=== PATIENT | female | born 1990 | race Caucasian/White ===

== ENCOUNTER 2019-01-27 17:01 | Emergency (ER) | payer OTHER ==
[2019-01-27 17:37] VITALS: BP 109/64; PULSE 68; TEMP 97.3; BMI 32.5
--- NOTE | 2019-01-27 18:03 | PDOC ---
History of Present Illness - General Chief Complaint: Pain, Acute Stated Complaint: LEFT/LEG PAIN Time Seen by Provider: 01/27/19 17:44 History Source: Patient Exam Limitations: No Limitations - History of Present Illness Initial Comments: 01/27/19 18:06 Patient is here with complaints of low back pain, worse on the left than the right with radiation pain through gluteus down the back of her leg. States had a fall down some stairs in October and since that time has had intermittent back pain and mild spasm. Has taken no medication for relief of same. States onset of this pain started approximately 3 days ago has been performing some heavy lifting at work the past few days. Thinks may be related to the recurrence of the spasm. Eyes numbness or tingling to feet, denies any problems with bowel or bladder. Occurred: reports: yesterday Severity: reports: mild, moderate Pain Location: reports: back Modifying Factors: improves with: None Loss of Consciousness: no loss of consciousness Associated Symptoms (Fall): denies symptoms Past History - Travel Traveled outside of the country in the last 30 days: No Close contact w/someone who was outside of country & ill: No - Past Medical History Allergies/Adverse Reactions: Allergies Allergy/AdvReac Type Severity Reaction Status Date / Time No Known Allergies Allergy Verified 01/27/19 17:34 Home Medications: Ambulatory Orders Cyclobenzaprine HCl 10 mg PO Q8H PRN #14 tablet 01/27/19 Naproxen [Naprosyn -] 500 mg PO BID #30 tablet 01/27/19 COPD: No - Immunization History Immunization Up to Date: No - Suicide/Smoking/Psychosocial Hx Smoking History: Never smoked Drug/Substance Use Hx: No Trauma Specific PMHX - Complaint Specific PMHX Back Injury: Yes (October, fell downstairs, was never evaluated.) Review of Systems - Review of Systems Able to Perform ROS?: Yes Is the patient limited Arabic proficient: Yes Constitutional: Yes: Symptoms Reported, See HPI, Malaise. No: Fever HEENTM: No: Symptoms Reported Respiratory: No: Symptoms reported Musculoskeletal: Yes: Symptoms Reported, See HPI, Back Pain, Muscle Pain Integumentary: No: Symptoms Reported Neurological: Yes: See HPI. No: Symptoms reported, Headache, Numbness, Paresthesia All Other Systems: Reviewed and Negative *Physical Exam - Vital Signs Last Vital Signs Temp Pulse Resp BP Pulse Ox 97.3 F L 68 16 109/64 100 01/27/19 17:35 01/27/19 17:35 01/27/19 17:35 01/27/19 17:35 01/27/19 17:35 - Physical Exam General Appearance: Yes: Nourished, Appropriately Dressed, Apparent Distress, Mild Distress, Moderate Distress HEENT: positive: OCTAVIO, Normal ENT Inspection, TMs Normal, Pharynx Normal Neck: positive: Supple. negative: Tender Respiratory/Chest: positive: Lungs Clear Musculoskeletal: positive: Normal Inspection, Decreased Range of Motion, Muscle Spasm (palpable paravertebral spinous muscles, has no true point tenderness to spine, is primarily the paravertebral lumbar area on the left side.). negative : CVA Tenderness (L), Vertebral Tenderness Extremity: positive: Normal Capillary Refill, Normal Inspection. 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, Fully Oriented, Alert, Normal Mood/ Affect, Normal Response, Motor Strength 5/5 Progress Note - Progress Note Progress Note: Low back strain, will treat with NSAIDs and cyclobenzaprine *DC/Admit/Observation/Transfer Diagnosis at time of Disposition: Low back strain Qualifiers: Encounter type: initial encounter Qualified Code(s): S39.012A - Strain of muscle, fascia and tendon of lower back, initial encounter - Discharge Dispostion Disposition: HOME Condition at time of disposition: Stable Decision to Admit order: No - Referrals - Patient Instructions Printed Discharge Instructions: DI for Back Spasm Additional Instructions: Rest, no heavy lifting or exercise until pain is resolved Hot soaks to neck and low back as often as possible/hot showers or Jacuzzis No massage or therapy until spasm is gone Continue Naprosyn 500 mg tablet, 1 tablet every 8 hours for the next 3 days then as needed for pain and swelling Cyclobenzaprine 1-10mg every 8 hours as needed for spasm If not significant improvement within 24 hours with medication and rest regime, followup with private physician for change in medications and /or therapy. - Post Discharge Activity Forms/Work/School Notes: Back to Work
== END 2019-01-27 18:14 | disposition home or self-care (01) ==
LOC: JERFT 17:01
DX: S39.012A Strain of muscle, fascia and tendon of lower back, initial encounter (principal); X58.XXXA Exposure to other specified factors, initial encounter; Y93.89 Activity, other specified; Y92.89 Other specified places as the place of occurrence of the external cause
CPT/HCPCS: 99281-25

== ENCOUNTER 2019-01-28 19:31 | Emergency (ER) | payer OTHER ==
--- NOTE | 2019-01-28 20:09 | PDOC ---
Rapid Medical Evaluation Chief Complaint: Back Pain Medical Evaluation: Allergies Allergy/AdvReac Type Severity Reaction Status Date / Time No Known Allergies Allergy Verified 01/27/19 17:34 01/28/19 20:03 I have performed a brief in-person evaluation of this patient. The patient presents with a chief complaint of: persistant back pain - taking flexeril and naprosyn Pertinent physical exam findings: tender/ low left lumbar spine. I have ordered the following: LS SPine The patient will proceed to the ED for further evaluation. 01/28/19 20:09
[2019-01-28 20:17] VITALS: BP 115/76; PULSE 70; TEMP 98.3; BMI 38.6
--- NOTE | 2019-01-28 20:38 | PDOC ---
History of Present Illness - General Chief Complaint: Back Pain Stated Complaint: BACK PAIN Time Seen by Provider: 01/28/19 20:29 History Source: Patient Exam Limitations: No Limitations Past History - Travel Traveled outside of the country in the last 30 days: No Close contact w/someone who was outside of country & ill: No - Past Medical History Allergies/Adverse Reactions: Allergies Allergy/AdvReac Type Severity Reaction Status Date / Time No Known Allergies Allergy Verified 01/28/19 20:16 Home Medications: Ambulatory Orders Cyclobenzaprine HCl 10 mg PO Q8H PRN #14 tablet 01/27/19 Naproxen [Naprosyn -] 500 mg PO BID #30 tablet 01/27/19 Diazepam [Valium] 5 mg PO HS #7 tablet MDD 1 01/28/19 Methylprednisolone [Medrol Dose Delgado] 4 mg PO ASDIR #21 tablet 01/28/19 COPD: No - Immunization History Immunization Up to Date: No - Suicide/Smoking/Psychosocial Hx Smoking History: Never smoked Have you smoked in the past 12 months: No Information on smoking cessation initiated: No Hx Alcohol Use: No Drug/Substance Use Hx: No Review of Systems - Review of Systems Able to Perform ROS?: Yes Comments:: 01/28/19 20:59 CONSTITUTIONAL: Absent: fever, chills, diaphoresis, generalized weakness, malaise, loss of appetite GASTROINTESTINAL: Absent: abdominal pain, abdominal distension, nausea, vomiting, diarrhea, constipation, melena, hematochezia GENITOURINARY: Absent: dysuria, frequency, urgency, hesitancy, hematuria, flank pain, genital pain MUSCULOSKELETAL: Present: low back pain Absent: arthralgia, joint swelling SKIN: Absent: rash, itching, pallor NEUROLOGIC: Absent: headache, focal weakness or paresthesias, dizziness, unsteady gait, seizure, mental status changes, bladder or bowel incontinence PSYCHIATRIC: Absent: anxiety, depression, suicidal or homicidal ideation, hallucinations. Is the patient limited Chilean proficient: No *Physical Exam - Vital Signs Last Vital Signs Temp Pulse Resp BP Pulse Ox 98.3 F 70 18 115/76 100 01/28/19 20:12 01/28/19 20:12 01/28/19 20:12 01/28/19 20:12 01/28/19 20:12 - Physical Exam Comments: 01/28/19 21:00 GENERAL: Well developed, well nourished. Awake and alert. No acute distress. NECK: Supple. Full ROM. No JVD. Carotid pulses 2+ and symmetric, without bruits. No thyromegaly. No lymphadenopathy. MUSCULOSKELETAL TTP of the R paraspinous muscles, L3-S1, with palpable knot consistent with muscle spasm. (+) straight leg raise on the right. No midline tenderness. Gait with visible limp favoring the L side. Decreased ROM of the low back d/t pain. Normal range of motion at all other joints. No bony deformities or tenderness. No CVA tenderness. EXTREMITIES: No cyanosis. No clubbing. No edema. No calf tenderness. SKIN: Warm and dry. Normal capillary refill. No rashes. No jaundice. NEUROLOGICAL: Alert, awake, appropriate. Cranial nerves 2-12 intact. No deficits to light touch and temperature in face, upper extremities and lower extremities. No motor deficits in the in face, upper extremities and lower extremities. Normoreflexic in the upper and lower extremities. Normal speech. Toes are down- going bilaterally. Gait is normal without ataxia. PSYCHIATRIC: Cooperative. Good eye contact. Appropriate mood and affect. Medical Decision Making - Medical Decision Making 01/28/19 21:00 The patient is a 28-year-old female with no past medical history who presents to the emergency department today for low back pain. Patient states she was here yesterday for similar symptoms. She states that the naproxen and Flexeril did not help her pain. She states the spasms started approximately 4 days ago. Patient does admit she lifts heavy objects at work. She states that the pain runs down her right leg. Denies fevers, chills, trauma, weakness to the extremities, numbness to the extremities, saddle anesthesia and bladder bowel incontinence. A/P: Low back pain -Pt with TTP of the R paraspinous muscles, L3-S1, with palpable knot consistent with muscle spasm. (+) straight leg raise on the right. No midline tenderness. Gait with visible limp favoring the L side. -No trauma, or fever. No saddle anesthesia or bladder/bowel incontinence. No CVA tenderness. -Pt is neurologically intact on exam with no focal findings. -Wet read of lumbar spine x-ray shows no acute fracture. Good spinal alignment with good disc height. -Toradol given with relief of symptoms -DC home. Pt to f/u with her PCP. Ortho referral given. -I discussed the physical exam findings, ancillary test results and final diagnoses with the patient. I answered all of the patient's questions. The patient was satisfied with the care received and felt comfortable with the discharge plan and treatment plan. The Patient agrees to follow up with the primary care physician/specialist within 24-72 hours. Return precautions were given. *DC/Admit/Observation/Transfer Diagnosis at time of Disposition: Low back pain Qualifiers: Chronicity: acute Back pain laterality: left Sciatica presence: with sciatica Sciatica laterality: sciatica of left side Qualified Code(s): M54.42 - Lumbago with sciatica, left side - Discharge Dispostion Disposition: HOME Condition at time of disposition: Stable Decision to Admit order: No - Prescriptions Prescriptions: Diazepam [Valium] 5 mg PO HS #7 tablet MDD 1 Methylprednisolone [Medrol Dose Delgado] 4 mg PO ASDIR #21 tablet - Referrals Referrals: Steve Mckeon MD [Primary Care Provider] - Peña Tinoco MD, FAANS [Staff Physician] - - Patient Instructions Printed Discharge Instructions: DI for Back Pain With Sciatica Additional Instructions: You have low back pain due to a muscle spasm. This is causing sciatica (pain down the leg) Please take the prednisone as prescribed. You were also prescribed Valium. Please take the medication before you go to bed. Do not drive after taking this medication as it may make you sleepy. You may use warm compresses on your back to help with her symptoms. Please follow-up with your primary care doctor. If your symptoms do not resolve in 3-5 days, follow-up with orthopedics. A referral has been provided for you. Return to the emergency department if you have worsening back pain, bladder or bowel incontinence, numbness and tingling in her legs, changes in the way you walk, or any new or worsening symptoms. - Post Discharge Activity Forms/Work/School Notes: Back to Work
[2019-01-28] MEDS ORDERED: LIDOCAINE 5% TOPICAL PATCH TP ONE (20:39)
[2019-01-28] MEDS ORDERED: diazePAM 5 MG TABLET PO ONE (20:39)
[2019-01-28] MEDS ORDERED: KETOROLAC TROMETHAMINE 60 MG/2 ML VIAL IM ONE (20:39)
[2019-01-28] MEDS ORDERED: KETOROLAC TROMETHAMINE 60 MG/2 ML VIAL ONE (21:14)
[2019-01-28] MEDS ORDERED: diazePAM 5 MG TABLET ONE (21:14)
[2019-01-28] MEDS ORDERED: LIDOCAINE 5% TOPICAL PATCH ONE (21:14)
[2019-01-28] MEDS ORDERED: LIDOCAINE PATCH REMOVAL MC SCH (22:00)
== END 2019-01-28 22:02 | disposition home or self-care (01) ==
LOC: JERFT 19:31
PROC: 3E0233Z Introduction of Anti-inflammatory into Muscle, Percutaneous Approach (ICD-10-PCS; principal; 2019-01-28)
DX: M54.42 Lumbago with sciatica, left side (principal)
CPT/HCPCS: 72100-TC-FY; 99281-25

== ENCOUNTER 2019-02-03 04:41 | Inpatient (IN) | payer OTHER ==
--- NOTE | 2019-02-03 05:45 | PDOC ---
History of Present Illness - History of Present Illness Initial Comments: 02/03/19 05:45 Ms. Grimes is a 28 yo female w/ pmh of obesity and recent MRI revealing L5-S1 herniated disc who presents for evaluation of exacerbation of her left lower back pain. Patient reports pain became worse last night and persisted after she took a valium she had at home. Denies any other symptoms besides pain but is finding it difficult to tolerate pain at this time. The patient denies chest pain, shortness of breath, headache and dizziness. Denies fever, chills, nausea, vomit, diarrhea and constipation. Denies dysuria, frequency, urgency and hematuria. <Kristian Valencia - Last Filed: 02/03/19 07:25> <Luis Claudio - Last Filed: 02/03/19 08:16> - General Chief Complaint: Back Pain Stated Complaint: LBP Time Seen by Provider: 02/03/19 05:41 Past History - Past Medical History COPD: No - Immunization History Immunization Up to Date: No - Suicide/Smoking/Psychosocial Hx Smoking History: Never smoked Have you smoked in the past 12 months: No Information on smoking cessation initiated: No Hx Alcohol Use: No Drug/Substance Use Hx: No <Kristian Valencia - Last Filed: 02/03/19 07:25> <Luis Claudio - Last Filed: 02/03/19 08:16> - Past Medical History Allergies/Adverse Reactions: Allergies Allergy/AdvReac Type Severity Reaction Status Date / Time No Known Allergies Allergy Verified 02/03/19 05:31 Home Medications: Ambulatory Orders Naproxen [Naprosyn -] 500 mg PO BID #30 tablet 01/27/19 Review of Systems - Review of Systems Comments:: 02/03/19 05:45 GENERAL/CONSTITUTIONAL: No fever or chills. No weakness. HEAD, EYES, EARS, NOSE AND THROAT: No change in vision. No ear pain or discharge. No sore throat. CARDIOVASCULAR: No chest pain or shortness of breath RESPIRATORY: No cough, wheezing, or hemoptysis. GASTROINTESTINAL: No nausea, vomiting, diarrhea or constipation. GENITOURINARY: No dysuria, frequency, or change in urination. MUSCULOSKELETAL: +Left lower back pain as described. No joint or muscle swelling or pain. No neck pain. SKIN: No rash NEUROLOGIC: No headache, vertigo, loss of consciousness, or change in strength/ sensation. ENDOCRINE: No increased thirst. No abnormal weight change HEMATOLOGIC/LYMPHATIC: No anemia, easy bleeding, or history of blood clots. ALLERGIC/IMMUNOLOGIC: No hives or skin allergy. <Kristian Valencia - Last Filed: 02/03/19 07:25> *Physical Exam - Vital Signs Last Vital Signs Temp Pulse Resp BP Pulse Ox 98.1 F 102 H 19 141/72 98 02/03/19 04:41 02/03/19 04:41 02/03/19 04:41 02/03/19 04:41 02/03/19 04:41 - Physical Exam Comments: 02/03/19 05:45 GENERAL: Awake, alert, and fully oriented, in no acute distress HEAD: No signs of trauma, normocephalic, atraumatic EYES: PERRLA, EOMI, sclera anicteric, conjunctiva clear ENT: Auricles normal inspection, hearing grossly normal, nares patent, oropharynx clear without exudates. Moist mucosa NECK: Normal ROM, supple, no lymphadenopathy, JVD, or masses LUNGS: No distress, speaks full sentences, clear to auscultation bilaterally HEART: Regular rate and rhythm, normal S1 and S2, no murmurs, rubs or gallops, peripheral pulses normal and equal bilaterally. ABDOMEN: Soft, nontender, normoactive bowel sounds. No guarding, no rebound. No masses EXTREMITIES: +L Lower back TTP. Minor L straight leg raise produced excessive pain. NEUROLOGICAL: Cranial nerves II through XII grossly intact. Normal speech, normal gait, no focal sensorimotor deficits SKIN: Warm, Dry, normal turgor, no rashes or lesions noted. <Kristian Valencia - Last Filed: 02/03/19 07:25> - Vital Signs Last Vital Signs Temp Pulse Resp BP Pulse Ox 98.1 F 86 19 141/72 98 02/03/19 04:41 02/03/19 06:45 02/03/19 04:41 02/03/19 04:41 02/03/19 04:41 <Luis Claudio - Last Filed: 02/03/19 08:16> ED Treatment Course - LABORATORY CBC & Chemistry Diagram: 02/03/19 06:14 02/03/19 06:14 <Kristian Valencia - Last Filed: 02/03/19 07:25> - LABORATORY CBC & Chemistry Diagram: 02/03/19 06:14 02/03/19 06:14 - ADDITIONAL ORDERS Additional order review: Laboratory Results 02/03/19 02/03/19 06:14 06:14 PT with INR 10.60 INR 0.90 PTT (Actin FS) 32.2 Sodium 139 Potassium 3.9 Chloride 106 Carbon Dioxide 23 Anion Gap 10 BUN 16 Creatinine 0.6 Creat Clearance w eGFR 118.19 Random Glucose 99 Calcium 7.8 L Total Bilirubin 0.2 AST 19 ALT 19 Alkaline Phosphatase 102 Total Protein 7.0 Albumin 3.8 02/03/19 06:14 RBC 4.57 MCV 80.1 MCHC 33.4 RDW 14.0 MPV 7.5 Neutrophils % 61.4 Lymphocytes % 30.7 Monocytes % 5.1 Eosinophils % 2.1 Basophils % 0.7 - Medications Given in the ED: ED Medications Discontinued Medications Generic Name Dose Route Start Last Admin Trade Name Freq PRN Reason Stop Dose Admin Sodium Chloride 1,000 mls @ 1,000 mls/hr 02/03/19 05:54 02/03/19 06:15 Normal Saline - IV 02/03/19 06:53 1,000 mls/hr ASDIR STA Administration Morphine Sulfate 4 mg 02/03/19 05:54 02/03/19 06:15 Morphine Injection - IVPUSH 02/03/19 05:55 4 mg ONCE ONE Administration <Luis Claudio - Last Filed: 02/03/19 08:16> Medical Decision Making - Medical Decision Making 02/03/19 06:00 Ms. Grimes is a 28 yo female w/ pmh as described who presents for evaluation of symptoms concerning for cauda equina. Patient discussed with Neurosurgery who recommended admission and will take to OR today. Pre-op started on patient. Will admit patient to hospitalist for further evaluation. <Kristian Valencia - Last Filed: 02/03/19 07:25> - Medical Decision Making 02/03/19 08:16 pt awaitng surgery c/o pain 08/05. will adminsiter iv morphine. <Luis Claudio - Last Filed: 02/03/19 08:16> *DC/Admit/Observation/Transfer - Discharge Dispostion Decision to Admit order: Yes <Kristian Valencia - Last Filed: 02/03/19 07:25> - Discharge Dispostion Decision to Admit order: Yes <Luis Claudio - Last Filed: 02/03/19 08:16> Diagnosis at time of Disposition: Low back pain Qualifiers: Chronicity: acute Back pain laterality: unspecified Sciatica presence: unspecified whether sciatica present Qualified Code(s): M54.5 - Low back pain Disk prolapse Qualifiers: Spinal region: lumbosacral Qualified Code(s): M51.27 - Other intervertebral disc displacement, lumbosacral region - Discharge Dispostion Condition at time of disposition: Fair
[2019-02-03] MEDS ORDERED: SODIUM CHLORIDE 1,000 ML IV STA (05:54)
[2019-02-03] MEDS ORDERED: morphine CARPU-JECT 4 MG/1 ML DISP.SYRIN IVPUSH ONE ×2 (05:54→08:00)
[2019-02-03] MEDS ORDERED: morphine SULFATE 4 MG/ML VIAL ONE ×2 (06:02→08:01)
[2019-02-03 06:23] LABS: BASO % 0.7 % (0-2.0); EOS % 2.1 % (0-4.5); HEMATOCRIT 36.6 % (32.4-45.2); HEMOGLOBIN 12.2 GM/dL (10.7-15.3); LYMPH % 30.7 % (8-40); MCH 26.7 pg (25.7-33.7); MCHC 33.4 g/dl (32.0-36.0); MEAN CELL VOLUME 80.1 fl (80-96); MEAN PLT VOLUME 7.5 fl (7.5-11.1); MONO % 5.1 % (3.8-10.2); NEUT % 61.4 % (42.8-82.8); PLATELET COUNT 356 K/MM3 (134-434); RBC 4.57 M/mm3 (3.60-5.2)
[2019-02-03 06:36] LABS: INR 0.9 (0.83-1.09); PROTHROMBIN TIME (PATIENT) 10.6 SEC (9.7-13.0)
[2019-02-03 06:39] LABS: ACTIVATED PTT 32.2 SECONDS (25.2-36.5)
[2019-02-03 06:57] LABS: ALBUMIN 3.8 g/dl (3.4-5.0); ALK PHOS 102 U/L (45-117); ANION GAP 10 MMOL/L (8-16); BILIRUBIN,TOTAL 0.2 mg/dL (0.2-1); BLOOD UREA NITROGEN 16 mg/dL (7-18); CALCIUM 7.8 mg/dL (8.5-10.1); CHLORIDE 106 mmol/L (98-107); CO2 23 mmol/L (21-32); CREATININE 0.6 mg/dL (0.55-1.3); GLUCOSE,RANDOM 99 mg/dL (74-106); POTASSIUM 3.9 mmol/L (3.5-5.1); SGOT/AST 19 U/L (15-37); SGPT/ALT 19 U/L (13-61); SODIUM 139 mmol/L (136-145)
--- NOTE | 2019-02-03 07:30 | PDOC ---
Attending Attestation - Resident Resident Name: Kristian Valencia - ED Attending Attestation I have performed the following: I have examined & evaluated the patient, The case was reviewed & discussed with the resident, I agree w/resident's findings & plan, Exceptions are as noted - HPI HPI: 02/03/19 07:27 The patient is a 28 year old female with a PMH of obesity and recent MRI revealing L5-S1 herniated disc who presents for evaluation of progressively worsening left lower back pain and difficulty urinating. Patient states she took valium at home with no improvement. Patient fell down the stairs in October and has been having lower back pain since. Dr. Gan states the patient has cuada equina syndrome secondary to the large L5S1 disc. Patient had an MRI on 02/02/19 , which showed L5-S1 herniated disc and was sent in for pre-op workup as she will have an L5-S1 laminectomies and fusion later today. Denies weakness/numbness. The patient denies chest pain, shortness of breath, headache and dizziness. Denies fever, chills, nausea, vomit, diarrhea and constipation. Denies dysuria, frequency, urgency and hematuria. Allergies: NKA Past surgical history: None reported. Social history: No reported alcohol, drug or cigarette use. PCP: Dr. Mckeon - Physicial Exam PE: 02/03/19 07:29 GENERAL: Awake, alert, and fully oriented, in no acute distress, lying prone on stretcher EYES: PERRLA, EOMI, sclera anicteric, conjunctiva clear ENT: Nares patent, oropharynx clear without exudates. Moist mucosa NECK: Normal ROM, supple, no lymphadenopathy, JVD, or masses LUNGS: Breath sounds equal, clear to auscultation bilaterally. No wheezes, and no crackles HEART: Regular rate and rhythm, normal S1 and S2, no murmurs, rubs or gallops ABDOMEN: Soft, nontender, normoactive bowel sounds. No guarding, no rebound. No masses EXTREMITIES: Normal range of motion, no edema. No cords, erythema, or tenderness BACK: No midline spinal tenderness in cervical/thoracic region. +diffuse ttp in lumbosacral spine NEUROLOGICAL: Normal speech, cranial nerves intact, 5/5 strength in all 4 extremities, normal sensation to light touch in all 4 extremities, normal cerebellar exam, normal reflexes and tone. Gait deferred SKIN: Warm, Dry, normal turgor, no rashes or lesions noted. - Medical Decision Making 02/03/19 07:29 28yo F sent to the ED for surgery 2/2 cauda equina syndrome seen on MRI last week per Dr. Tinoco. Pt with intractable LBP and difficulty urinating. Dr. Tinoco requests pre-op labs, and pain control, pt to go to OR today. UA, labs pending, case signed out to Dr. Claudio for f/u on labs, and admission to hospital for surgical management.
--- NOTE | 2019-02-03 07:45 | HP ---
CHIEF COMPLAINT: "my back hurts" PCP: none Neuro: Earnest HISTORY OF PRESENT ILLNESS: This is a 28 yo F with PMH of obesity and back pain, Dr Villanueva patient, with recent MRI revealing L5-S1 herniated disc, who presents due to worsened left lower back pain since last night 06/05. Pain is not alleviated by valium. pain is radiating down LLE, is associated with LLE numbness and weakness, as well as difficulty urinating. Patient was directed by Dr Tinoco to come in for surgery today. Last meal 7 pm last night. Denies f/c, n/v, cp, cough, sob, dysuria, hematuria, melena, hematochezia, vaginal bleeding. ER course was notable for: (1)labs (2)sp fuentes Recent Travel: denies PAST MEDICAL HISTORY: as above PAST SURGICAL HISTORY: none Social History: Smoking: denies Alcohol:denies Drugs: denies Family History: noncontributory Allergies No Known Allergies Allergy (Verified 02/03/19 05:31) HOME MEDICATIONS: Home Medications Medication Instructions Recorded Naproxen [Naprosyn -] 500 mg PO BID #30 tablet 01/27/19 REVIEW OF SYSTEMS CONSTITUTIONAL: Absent: fever, chills HEENT: Absent: rhinorrhea, nasal congestion, throat pain CARDIOVASCULAR: Absent: chest pain, syncope, palpitations, irregular heart rate, lightheadedness , peripheral edema RESPIRATORY: Absent: cough, shortness of breath GASTROINTESTINAL: Absent: abdominal pain, abdominal distension, nausea, vomiting, diarrhea, constipation, melena, hematochezia GENITOURINARY: Absent: dysuria, flank pain MUSCULOSKELETAL: Absent: neck pain SKIN: Absent: rash, itching, pallor HEMATOLOGIC/IMMUNOLOGIC: Absent: easy bleeding, easy bruising ENDOCRINE: Absent: heat intolerance, cold intolerance NEUROLOGIC: Absent: headache, focal weakness or paresthesias PSYCHIATRIC: Absent: anxiety, depression PHYSICAL EXAMINATION Vital Signs - 24 hr 02/03/19 02/03/19 04:41 06:45 Temperature 98.1 F Pulse Rate 102 H Pulse Rate [ 86 Apical] Respiratory 19 Rate Blood Pressure 141/72 O2 Sat by Pulse 98 Oximetry (%) GENERAL: Awake, alert, and fully oriented, in no acute distress. HEAD: Normal with no signs of trauma. EYES: Pupils equal, round and reactive to light, extraocular movements intact, sclera anicteric, conjunctiva clear. No lid lag. EARS, NOSE, THROAT: Moist mucous membranes. NECK: Normal range of motion, supple LUNGS: Breath sounds equal, clear to auscultation bilaterally. No wheezes, and no crackles. No accessory muscle use. HEART: Regular rate and rhythm, normal S1 and S2 without murmur, rub or gallop. ABDOMEN: Soft, nontender, not distended, normoactive bowel sounds, no guarding, no rebound, no masses. No hepatomegaly or splenomegaly. MUSCULOSKELETAL: No CVA tenderness. UPPER EXTREMITIES: 2+ pulses, warm, well-perfused. No cyanosis. No clubbing. No peripheral edema. LOWER EXTREMITIES: 2+ pulses, warm, well-perfused. No calf tenderness. No peripheral edema. NEUROLOGICAL: Cranial nerves II-XII grossly intact. LLE decreased reflexes compared to RLE, decreased sensation and strength in LLE. LLE strenght 4+/5, patellar and achilles 1+ LLE and 2+ RLE. Normal speech. PSYCHIATRIC: Cooperative. Good eye contact. Appropriate mood and affect. SKIN: Warm, dry Laboratory Results - last 24 hr 02/03/19 02/03/19 02/03/19 06:14 06:14 06:14 WBC 10.0 RBC 4.57 Hgb 12.2 Hct 36.6 MCV 80.1 MCH 26.7 MCHC 33.4 RDW 14.0 Plt Count 356 MPV 7.5 Absolute Neuts (auto) 6.1 Neutrophils % 61.4 Lymphocytes % 30.7 Monocytes % 5.1 Eosinophils % 2.1 Basophils % 0.7 Nucleated RBC % 0 PT with INR 10.60 INR 0.90 PTT (Actin FS) 32.2 Sodium 139 Potassium 3.9 Chloride 106 Carbon Dioxide 23 Anion Gap 10 BUN 16 Creatinine 0.6 Creat Clearance w eGFR 118.19 Random Glucose 99 Calcium 7.8 L Total Bilirubin 0.2 AST 19 ALT 19 Alkaline Phosphatase 102 Total Protein 7.0 Albumin 3.8 ASSESSMENT/PLAN: This is a 28 yo F with PMH of obesity and back pain, Dr Villanueva patient, with recent MRI revealing L5-S1 herniated disc, who presents due to worsened left lower back pain since last night 06/05. Lumbar pain exacerbation due to L5-S1 herniated disc/cauda equina -OR today -NPO -IV hydration -IV tylenol + morphine pain control -DVT ppx SCDs -PPI -PT -likely ICU post op
[2019-02-03] MEDS ORDERED: SODIUM CHLORIDE 500 ML IV STA (08:00)
[2019-02-03] MEDS ORDERED: morphine SULFATE 4 MG/ML VIAL IVPUSH PRN (08:11)
[2019-02-03] MEDS ORDERED: ACETAMINOPHEN 1000 MG/100 ML VIAL (NON FORMULARY) IVPB PRN ×2 (08:15→17:27)
[2019-02-03] MEDS ORDERED: SODIUM CHLORIDE 1,000 ML IV SCH (08:15)
[2019-02-03 09:34] LABS: HCG,QUALITATIVE URINE Negative
[2019-02-03 10:34] LABS: URINE APPEARANCE Clear; URINE BILIRUBIN Negative (NEGATIVE); URINE COLOR Yellow; URINE GLUCOSE (UA) Negative (NEGATIVE); URINE KETONE Negative (NEGATIVE); URINE LEUK ESTERASE 1+ (NEGATIVE); URINE NITRITE Positive (NEGATIVE); URINE PROTEIN Negative (NEGATIVE); URINE UROBILINOGEN 0.2 mg/dL (0.2-1.0)
--- NOTE | 2019-02-03 11:01 | EKG ---
Test Reason : Blood Pressure : / mmHG Vent. Rate : 086 BPM Atrial Rate : 086 BPM P-R Int : 142 ms QRS Dur : 078 ms QT Int : 380 ms P-R-T Axes : 032 064 048 degrees QTc Int : 454 ms POOR DATA QUALITY, INTERPRETATION MAY BE ADVERSELY AFFECTED SINUS RHYTHM WITH OCCASIONAL PREMATURE VENTRICULAR COMPLEXES OTHERWISE NORMAL ECG NO PREVIOUS ECGS AVAILABLE Confirmed by LAURA ROSS, DIANNA ([id number]) on 02/03/2019 11:00:25 AM Referred By: Confirmed By:DIANNA SANCHEZ MD
[2019-02-03] MEDS ORDERED: fentaNYL CITRATE 250 MCG/5 ML VIAL ONE (11:06)
[2019-02-03] MEDS ORDERED: ONDANSETRON 4 MG/2 ML VIAL IVPUSH PRN ×3 (11:29→17:27)
[2019-02-03] MEDS ORDERED: ONDANSETRON 4 MG/2 ML VIAL ONE ×2 (11:45→16:52)
--- NOTE | 2019-02-03 11:57 | PN ---
Teaching Attending Note Name of Resident: Elina Lopez ATTENDING PHYSICIAN STATEMENT I saw and evaluated the patient. I reviewed the resident's note and discussed the case with the resident. I agree with the resident's findings and plan as documented. SUBJECTIVE: This patient is a 28 yo F with PMH of obesity and back pain, patient of Dr Modi, had arecent MRI with herniated L5-S1 herniated disc, who presents due to worsening left lower back pain since last night 06/05. pain is radiating down LLE, is associated with LLE numbness and weakness, as well as difficulty urinating. Patient has no relief from Valium. OBJECTIVE: Vital Signs Temperature 98.1 F 02/03/19 04:41 Pulse Rate 86 02/03/19 06:45 Respiratory Rate 02/03/19 04:41 Blood Pressure 141/72 02/03/19 04:41 O2 Sat by Pulse Oximetry (%) 98 02/03/19 04:41 GENERAL: Awake, alert, and fully oriented, in no acute distress. HEAD: Normal with no signs of trauma. EYES: Pupils equal, round and reactive to light, extraocular movements intact, sclera anicteric, conjunctiva clear.. EARS, NOSE, THROAT: Moist mucous membranes. NECK: Normal range of motion, supple LUNGS: Breath sounds equal, clear to auscultation bilaterally. No wheezes, and no crackles. No accessory muscle use. HEART: Regular rate and rhythm, normal S1 and S2 without murmur, rub or gallop. ABDOMEN: Soft, nontender, not distended, normoactive bowel sounds, no guarding, no rebound, no masses. No hepatomegaly or splenomegaly. MUSCULOSKELETAL: No CVA tenderness. EXTREMITIES: 2+ pulses, warm, well-perfused. No cyanosis. No clubbing. No peripheral edema. NEUROLOGICAL: Cranial nerves II-XII grossly intact. patellar and achilles 1+ LLE and 2+ RLE. Normal speech. PSYCHIATRIC: Cooperative. Good eye contact. Appropriate mood and affect. SKIN: Warm, dry. CBCD WBC 10.0 K/mm3 (4.0-10.0) 02/03/19 06:14 RBC 4.57 M/mm3 (3.60-5.2) 02/03/19 06:14 Hgb 12.2 GM/dL (10.7-15.3) 02/03/19 06:14 Hct 36.6 % (32.4-45.2) 02/03/19 06:14 MCV 80.1 fl (80-96) 02/03/19 06:14 MCHC 33.4 g/dl (32.0-36.0) 02/03/19 06:14 RDW 14.0 % (11.6-15.6) 02/03/19 06:14 Plt Count 356 K/MM3 (134-434) 02/03/19 06:14 MPV 7.5 fl (7.5-11.1) 02/03/19 06:14 CMP Sodium 139 mmol/L (136-145) 02/03/19 06:14 Potassium 3.9 mmol/L (3.5-5.1) 02/03/19 06:14 Chloride 106 mmol/L (98-107) 02/03/19 06:14 Carbon Dioxide 23 mmol/L (21-32) 02/03/19 06:14 Anion Gap 10 MMOL/L (8-16) 02/03/19 06:14 BUN 16 mg/dL (7-18) 02/03/19 06:14 Creatinine 0.6 mg/dL (0.55-1.3) 02/03/19 06:14 Creat Clearance w eGFR 118.19 (>60) 02/03/19 06:14 Random Glucose 99 mg/dL (74-106) 02/03/19 06:14 Calcium 7.8 mg/dL (8.5-10.1) L 02/03/19 06:14 Total Bilirubin 0.2 mg/dL (0.2-1) 02/03/19 06:14 AST 19 U/L (15-37) 02/03/19 06:14 ALT 19 U/L (13-61) 02/03/19 06:14 Alkaline Phosphatase 102 U/L (45-117) 02/03/19 06:14 Total Protein 7.0 g/dl (6.4-8.2) 02/03/19 06:14 Albumin 3.8 g/dl (3.4-5.0) 02/03/19 06:14 Current Medications Generic Name Dose Route Start Last Admin Trade Name Freq PRN Reason Stop Dose Admin Acetaminophen 1,000 mg 02/03/19 08:15 Ofirmev Injection - IVPB Q6H PRN PAIN LEVEL 1-5 Sodium Chloride 1,000 mls @ 100 mls/hr 02/03/19 08:15 02/03/19 11:39 Normal Saline - IV 100 mls/hr ASDIR RAUL Administration Morphine Sulfate 4 mg 02/03/19 08:11 Morphine Sulfate IVPUSH Q4H PRN PAIN LEVEL 6-10 Ondansetron HCl 4 mg 02/03/19 11:29 Zofran Injection IVPUSH Q4H PRN NAUSEA AND/OR VOMITING Home Medications Medication Instructions Recorded Naproxen [Naprosyn -] 500 mg PO BID #30 tablet 01/27/19 ASSESSMENT AND PLAN: Patient is a 28yo female with PMHx of obesity and back pain ; Dr Tinoco's patient, with recent MRI revealing L5-S1 herniated disc, who presents today worsened with left lower back pain since last night 06/05. # Acute exacerbation of L-spine L5-S1 with disc herniation : to OR today, NPO, IV hydration -IV tylenol + morphine pain control. DVT ppx SCDs
[2019-02-03] MEDS ORDERED: MORPHINE 5 MG/10 ML AMP - FOR COMPOUNDING USE ONLY ONE (12:21)
[2019-02-03] MEDS ORDERED: MIDAZOLAM HCL 2 MG/2 ML SINGLE DOSE VIAL ONE (12:25)
[2019-02-03] MEDS ORDERED: LIDOCAINE 1%-EPI 1:100,000 30 ML MDV IJ ONE (12:47)
[2019-02-03] MEDS ORDERED: GENTAMICIN SO4 80 MG/2 ML VIAL ONE (12:48)
[2019-02-03] MEDS ORDERED: VANCOMYCIN 1,000 MG VIAL (RESTRICTED TO ID ONLY) ONE ×2 (12:48→13:24)
[2019-02-03] MEDS ORDERED: THROMBIN (BOVINE) 20,000 UNIT VIAL TP ONE (13:02)
[2019-02-03] MEDS ORDERED: ceFAZolin SODIUM 1 GM VIAL ONE ×2 (13:24→17:37)
[2019-02-03] MEDS ORDERED: ceFAZolin SODIUM 1 GM VIAL IVPB ONE ×2 (13:25→18:15)
[2019-02-03] MEDS ORDERED: VANCOMYCIN 1,000 MG VIAL (RESTRICTED TO ID ONLY) IVPB ONE ×3 (13:35→15:57)
[2019-02-03] MEDS ORDERED: THROMBIN (BOVINE) 5,000 UNIT VIAL TP ONE (13:51)
[2019-02-03] MEDS ORDERED: GELATIN, ABSORBABLE 12-7MM EACH SPONGE TP ONE (13:51)
[2019-02-03] MEDS ORDERED: ROCURONIUM BROMIDE 50 MG/5 ML VIAL ONE (13:55)
[2019-02-03] MEDS ORDERED: morphine SULFATE/Preservative Free 0.5 MG/ML (1cc Syringe) EP ONE (14:56)
[2019-02-03] MEDS ORDERED: LACTATED RINGERS SOLUTION 1,000 ML IV SCH (15:00)
[2019-02-03] MEDS ORDERED: ACETAMINOPHEN 1000 MG/100 ML VIAL (NON FORMULARY) IVPB SCH (15:00)
[2019-02-03] MEDS ORDERED: HYDROGEN PEROXIDE 473 ML PO ONE (15:05)
[2019-02-03] MEDS ORDERED: BACITRACIN 50,000 UNITS VIAL TP ONE ×3 (15:05→15:57)
[2019-02-03] MEDS ORDERED: GENTAMICIN SO4 80 MG/2 ML VIAL IVPB ONE (15:05)
[2019-02-03] MEDS ORDERED: BUPIVACAINE HCL/PF (5 MG/ML) 30 ML VIAL IJ ONE (16:00)
[2019-02-03] MEDS ORDERED: BUPIVACAINE LIPOSOME/PF (EXPAREL) 266 MG/20 ML VIAL NR ONE (16:00)
[2019-02-03] MEDS ORDERED: NEOSTIGMINE METHYLSULFATE 0.5 MG/1 ML - 10 ML MDV ONE (16:14)
[2019-02-03] MEDS ORDERED: GLYCOPYRROLATE 0.2 MG/1 ML VIAL ONE (16:14)
[2019-02-03] MEDS ORDERED: DEXAMETHASONE SOD PHOSPHATE 4 MG/1 ML VIAL ONE (16:52)
--- NOTE | 2019-02-03 17:15 | OP ---
Operative Note - Note: Operative Date: 02/03/19 Pre-Operative Diagnosis: L5-S1 herniated disc, and cauda equina syndrome Operation: L5/S1 laminectomies, posterior fusion Post-Operative Diagnosis: Same as Pre-op Surgeon: Peña Tinoco Lift Mechanic: Anjum Ruiz Anesthesiologist/BENCH INSPECTOR: Alexander Mac Anesthesia: General Operative Report Dictated: Yes
[2019-02-03] MEDS ORDERED: diphenhydrAMINE HCL 25 MG CAPSULE (FP) PO PRN (17:27)
[2019-02-03] MEDS: CEFAZOLIN 1 GM/D5W 1 GM/50 ML BAG IVPB SCH (17:30)
[2019-02-03] MEDS: LACTATED RINGERS SOLUTION 1,000 ML IV SCH (19:14)
[2019-02-03 19:24] VITALS: BMI 33.5
[2019-02-03] MEDS: HEPARIN NA (PORCINE) 5,000 UNITS/ML 1ML VIAL SQ SCH (22:34)
[2019-02-03] MEDS: ACETAMINOPHEN 1000 MG/100 ML VIAL (NON FORMULARY) IVPB SCH (22:35)
[2019-02-03] MEDS: DOCUSATE SODIUM 100 MG CAPSULE (FP) PO SCH (22:35)
[2019-02-04] MEDS: CEFAZOLIN 1 GM/D5W 1 GM/50 ML BAG IVPB SCH ×3 (01:12→17:54)
[2019-02-04] MEDS: ACETAMINOPHEN 1000 MG/100 ML VIAL (NON FORMULARY) IVPB SCH ×2 (04:00→10:43)
[2019-02-04] MEDS: DOCUSATE SODIUM 100 MG CAPSULE (FP) PO SCH ×3 (06:36→21:56)
[2019-02-04] MEDS: HEPARIN NA (PORCINE) 5,000 UNITS/ML 1ML VIAL SQ SCH ×3 (06:36→21:56)
[2019-02-04 07:08] LABS: BASO % 0.1 % (0-2.0); HEMATOCRIT 28.4 % (32.4-45.2); HEMOGLOBIN 9.5 GM/dL (10.7-15.3); MCH 26.7 pg (25.7-33.7); MCHC 33.3 g/dl (32.0-36.0); MEAN CELL VOLUME 80.3 fl (80-96); MONO % 2.7 % (3.8-10.2); NEUT % 88.2 % (42.8-82.8); PLATELET COUNT 290 K/MM3 (134-434); RBC 3.54 M/mm3 (3.60-5.2); RDW 14.2 % (11.6-15.6); WHITE BLOOD COUNT 11.6 K/mm3 (4.0-10.0)
[2019-02-04 07:09] LABS: INR 1.07 (0.83-1.09); PROTHROMBIN TIME (PATIENT) 12.6 SEC (9.7-13.0)
[2019-02-04 07:40] LABS: ANION GAP 8 MMOL/L (8-16); BLOOD UREA NITROGEN 10 mg/dL (7-18); CALCIUM 7.9 mg/dL (8.5-10.1); CHLORIDE 104 mmol/L (98-107); CO2 23 mmol/L (21-32); CREATININE 0.5 mg/dL (0.55-1.3); GLUCOSE,RANDOM 99 mg/dL (74-106); MAGNESIUM 1.8 mg/dL (1.8-2.4); PHOSPHOROUS 3.4 mg/dL (2.5-4.9); POTASSIUM 4.1 mmol/L (3.5-5.1); SODIUM 135 mmol/L (136-145)
[2019-02-04] MEDS ORDERED: FOLIC ACID 1 MG TABLET (FP) PO SCH (10:00)
[2019-02-04] MEDS ORDERED: FERROUS SO4 325 MG TABLET (FP) PO SCH (10:00)
[2019-02-04] MEDS ORDERED: PT OWN MED DRAWER 7, Y5N ONE (10:32)
[2019-02-04] MEDS ORDERED: morphine CARPU-JECT 4 MG/1 ML DISP.SYRIN IVPUSH PRN (13:00)
[2019-02-04] MEDS ORDERED: MORPHINE SULFATE 2 MG/ML VIAL IVPUSH PRN ×2 (13:00→18:17)
[2019-02-04] MEDS ORDERED: oxyCODONE HCL 10 MG SUSTAINED ACTING TABLET PO SCH ×2 (13:00)
[2019-02-04] MEDS ORDERED: oxyCODONE HCL 5 MG TABLET PO PRN ×5 (13:00→18:17)
--- NOTE | 2019-02-04 13:39 | PN ---
Progress Note (short form) - Note Progress Note: Anesthesia postop note 28 y/o F s/p GA for lumbar laminectomy, duramorph POD#1, vss, aaox3, no complaints. No anesthesia complications.
--- NOTE | 2019-02-04 14:12 | PN ---
Progress Note (short form) - Note Progress Note: 28yo F s/p L5-S1 PLIF, seen and examined at bedside. Pt states that she feels much better, and pain is greatly improved. Pt denies any weakness or numbness. No fever, chills, n/v. Last Vital Signs Temp Pulse Resp BP Pulse Ox 98.4 F 76 20 104/59 L 100 02/04/19 13:00 02/04/19 13:00 02/04/19 13:00 02/04/19 13:00 02/04/19 09:00 CBC, BMP 02/04/19 05:30 02/04/19 05:30 PE: Gen: A&O x3 Resp: breathing comfortably Back: incision clean no erythema, drain in place with serosanguinous drainage. Output: 160ml Ext: no weakness or numbness. Problem List - Problems (1) Disk prolapse Assessment/Plan: Plan -will dc pringle and do post void bladder scan, if continues to retain will replace pringle -OOB/ambulate -PT -pain control Code(s): [id number] - Qualifiers: Spinal region: lumbosacral Qualified Code(s): M51.27 - Other intervertebral disc displacement, lumbosacral region
[2019-02-04] MEDS ORDERED: morphine CARPU-JECT 2 MG/1 ML DISP.SYRIN IVPB PRN (15:02)
--- NOTE | 2019-02-04 15:20 | SURG ---
Surgery Pet Ambassador Note Pet Ambassador: Anjum Ruiz PA-C Date of Service: 02/04/19 Diagnosis: L5/S1 instability with disc herniation resulting in cauda equina syndrome with intractable pain Procedure: 1. Bilateral L5/S1 laminectomy 2. L5/S1 Transpedicular approach 3. Posterior osteotomy L5 4. Posterior Osteotomy S1 5. Microdissection 6. Interbody and Posterior/lateral arthodesis L5/S1 7. L5/S1 Posterior instrumentation (technically challenging) 8. Local autograft 9. Interbody cage L5/S1 10. Bilateral soft tissue advancement flaps (50 cm2) I was present for the entirety of the operative procedure. For further detail, please refer to operative report. Visit type - Case Type Case Type: ED Admission - Emergency Emergency Visit: Yes ED Registration Date: 02/03/19 Care time: The patient presented to the Emergency Department on the above date and was hospitalized for further evaluation of their emergent condition. - New patient This patient is new to me today: Yes Date on this admission: 02/04/19
[2019-02-04] MEDS ORDERED: ACETAMINOPHEN 325 MG TABLET (FP) PO PRN (15:22)
[2019-02-04 17:21] LABS: HEMATOCRIT 28.4 % (32.4-45.2); HEMOGLOBIN 9.4 GM/dL (10.7-15.3); MCH 26.8 pg (25.7-33.7); MCHC 33.1 g/dl (32.0-36.0); MEAN CELL VOLUME 80.9 fl (80-96); MEAN PLT VOLUME 7.6 fl (7.5-11.1); PLATELET COUNT 281 K/MM3 (134-434); RBC 3.52 M/mm3 (3.60-5.2); RDW 14.6 % (11.6-15.6); WHITE BLOOD COUNT 12.2 K/mm3 (4.0-10.0)
--- NOTE | 2019-02-04 17:58 | PN ---
Teaching Attending Note Name of Resident: Nanette Napier ATTENDING PHYSICIAN STATEMENT I saw and evaluated the patient. I reviewed the resident's note and discussed the case with the resident. I agree with the resident's findings and plan as documented. SUBJECTIVE: This patient is a 28 yo F with PMH of obesity and back pain, patient of Dr Modi, had arecent MRI with herniated L5-S1 herniated disc, who presents due to worsening left lower back pain since last night 06/05. pain is radiating down LLE, is associated with LLE numbness and weakness, as well as difficulty urinating. Patient has no relief from Valium. OBJECTIVE: Vital Signs Temperature 98.4 F 02/04/19 13:00 Pulse Rate 76 02/04/19 13:00 Respiratory Rate 20 02/04/19 13:00 Blood Pressure 104/59 L 02/04/19 13:00 O2 Sat by Pulse Oximetry (%) 100 02/04/19 09:00 GENERAL: Awake, alert, and fully oriented, in no acute distress. HEAD: Normal with no signs of trauma. EYES: Pupils equal, round and reactive to light, extraocular movements intact, sclera anicteric, conjunctiva clear.. EARS, NOSE, THROAT: Moist mucous membranes. NECK: Normal range of motion, supple LUNGS: Breath sounds equal, clear to auscultation bilaterally. No wheezes, and no crackles. No accessory muscle use. HEART: Regular rate and rhythm, normal S1 and S2 without murmur, rub or gallop. ABDOMEN: Soft, nontender, not distended, normoactive bowel sounds, no guarding, no rebound, no masses. No hepatomegaly or splenomegaly. MUSCULOSKELETAL: No CVA tenderness. EXTREMITIES: 2+ pulses, warm, well-perfused. No cyanosis. No clubbing. No peripheral edema. NEUROLOGICAL: Cranial nerves II-XII grossly intact. patellar and achilles 1+ LLE and 2+ RLE. Normal speech. PSYCHIATRIC: Cooperative. Good eye contact. Appropriate mood and affect. SKIN: Warm, dry. CBCD WBC 12.2 K/mm3 (4.0-10.0) H 02/04/19 17:00 RBC 3.52 M/mm3 (3.60-5.2) L 02/04/19 17:00 Hgb 9.4 GM/dL (10.7-15.3) L 02/04/19 17:00 Hct 28.4 % (32.4-45.2) L 02/04/19 17:00 MCV 80.9 fl (80-96) 02/04/19 17:00 MCHC 33.1 g/dl (32.0-36.0) 02/04/19 17:00 RDW 14.6 % (11.6-15.6) 02/04/19 17:00 Plt Count 281 K/MM3 (134-434) 02/04/19 17:00 MPV 7.6 fl (7.5-11.1) 02/04/19 17:00 CMP Sodium 135 mmol/L (136-145) L 02/04/19 05:30 Potassium 4.1 mmol/L (3.5-5.1) 02/04/19 05:30 Chloride 104 mmol/L (98-107) 02/04/19 05:30 Carbon Dioxide 23 mmol/L (21-32) 02/04/19 05:30 Anion Gap 8 MMOL/L (8-16) 02/04/19 05:30 BUN 10 mg/dL (7-18) 02/04/19 05:30 Creatinine 0.5 mg/dL (0.55-1.3) L 02/04/19 05:30 Creat Clearance w eGFR 145.87 (>60) 02/04/19 05:30 Random Glucose 99 mg/dL (74-106) 02/04/19 05:30 Calcium 7.9 mg/dL (8.5-10.1) L 02/04/19 05:30 Total Bilirubin 0.2 mg/dL (0.2-1) 02/03/19 06:14 AST 19 U/L (15-37) 02/03/19 06:14 ALT 19 U/L (13-61) 02/03/19 06:14 Alkaline Phosphatase 102 U/L (45-117) 02/03/19 06:14 Total Protein 7.0 g/dl (6.4-8.2) 02/03/19 06:14 Albumin 3.8 g/dl (3.4-5.0) 02/03/19 06:14 Current Medications Generic Name Dose Route Start Last Admin Trade Name Freq PRN Reason Stop Dose Admin Acetaminophen 650 mg 02/04/19 15:22 Tylenol - PO Q6H PRN FEVER Diphenhydramine HCl 25 mg 02/03/19 17:27 Benadryl - PO Q6H PRN FOR ITCHING Docusate Sodium 100 mg 02/03/19 22:00 02/04/19 13:47 Colace - PO 100 mg TID RAUL Administration Ferrous Sulfate 325 mg 02/04/19 10:00 02/04/19 10:44 Feosol - PO 325 mg DAILY RAUL Administration Folic Acid 1 mg 02/04/19 10:00 02/04/19 10:44 Folic Acid - PO 1 mg DAILY RAUL Administration Heparin Sodium (Porcine) 5,000 unit 02/03/19 22:00 02/04/19 13:46 Heparin - SQ 5,000 unit TID RAUL Administration Lactated Ringer's 1,000 mls @ 125 mls/hr 02/03/19 17:27 02/03/19 19:14 Lactated Ringers Solution IV 125 mls/hr ASDIR RAUL Administration Cefazolin Sodium 1 gm in 50 mls @ 100 mls/hr 02/03/19 18:00 02/04/19 17:54 Ancef 1 Gm Premixed Ivpb - IVPB 100 mls/hr Q8H-IV RAUL Administration Morphine Sulfate 4 mg 02/04/19 13:00 Morphine Sulfate IVPUSH Q6H PRN PAIN LEVEL 7 - 10 Ondansetron HCl 4 mg 02/03/19 17:27 Zofran Injection IVPUSH Q6H PRN NAUSEA Oxycodone HCl 5 mg 02/04/19 13:00 Roxicodone - PO Q3H PRN PAIN LEVEL 1 - 3 Oxycodone HCl 10 mg 02/04/19 13:00 Roxicodone - PO Q3H PRN PAIN LEVEL 4 - 6 Oxycodone HCl 10 mg 02/04/19 13:00 02/04/19 13:47 Oxycontin - PO 10 mg BID RAUL Administration Home Medications Medication Instructions Recorded Naproxen [Naprosyn -] 500 mg PO BID #30 tablet 01/27/19 ASSESSMENT AND PLAN: Patient is a 28yo female with PMHx of obesity and back pain ; Dr Tinoco's patient, with recent MRI revealing L5-S1 herniated disc, who presents today worsened with left lower back pain since last night 06/05. # Acute exacerbation of L-spine L5-S1 with disc herniation : to OR today, NPO, IV hydration -IV tylenol + morphine pain control. DVT ppx SCDs
[2019-02-04] MEDS: LACTATED RINGERS SOLUTION 1,000 ML IV SCH (18:04)
--- NOTE | 2019-02-04 18:12 | PN ---
Physical Exam: SUBJECTIVE: Patient seen and examined at bedside this morning. Patient is POD 1. Reports feeling well, resting comfortably in bed. Denies any pain, fever, or chills. OBJECTIVE: Vital Signs Temperature 98.4 F 02/04/19 13:00 Pulse Rate 76 02/04/19 13:00 Respiratory Rate 20 02/04/19 13:00 Blood Pressure 104/59 L 02/04/19 13:00 O2 Sat by Pulse Oximetry (%) 100 02/04/19 09:00 GENERAL: The patient is awake, alert, and fully oriented, in no acute distress. HEAD: Normal with no signs of trauma. EYES: PERRLA, EOMI, sclera anicteric, conjunctiva clear. ENT: oropharynx clear without exudates, moist mucous membranes. NECK: Trachea midline, full range of motion, supple. LUNGS: Breath sounds equal, clear to auscultation bilaterally. HEART: Regular rate and rhythm, S1, S2 without murmur, rub or gallop. ABDOMEN: Soft, nontender, nondistended, normoactive bowel sounds. EXTREMITIES: 2+ pulses, warm, well-perfused, no edema. NEUROLOGICAL: Cranial nerves II through XII grossly intact. Motor strength 5/5, sensation intact. Normal speech, gait not observed. PSYCH: Normal mood, normal affect. SKIN: Warm, dry, normal turgor, no rashes or lesions noted Laboratory Results - last 24 hr 02/04/19 02/04/19 02/04/19 05:30 05:30 05:30 WBC 11.6 H RBC 3.54 L Hgb 9.5 L Hct 28.4 L D MCV 80.3 MCH 26.7 MCHC 33.3 RDW 14.2 Plt Count 290 MPV 8.0 Absolute Neuts (auto) 10.2 H Neutrophils % 88.2 H D Lymphocytes % 9.0 D Monocytes % 2.7 L Eosinophils % 0.0 D Basophils % 0.1 Nucleated RBC % 0 PT with INR 12.60 INR 1.07 Sodium 135 L Potassium 4.1 Chloride 104 Carbon Dioxide 23 Anion Gap 8 BUN 10 Creatinine 0.5 L Creat Clearance w eGFR 145.87 Random Glucose 99 Calcium 7.9 L Phosphorus 3.4 Magnesium 1.8 02/04/19 17:00 WBC 12.2 H RBC 3.52 L Hgb 9.4 L Hct 28.4 L MCV 80.9 MCH 26.8 MCHC 33.1 RDW 14.6 Plt Count 281 MPV 7.6 Absolute Neuts (auto) Neutrophils % Lymphocytes % Monocytes % Eosinophils % Basophils % Nucleated RBC % PT with INR INR Sodium Potassium Chloride Carbon Dioxide Anion Gap BUN Creatinine Creat Clearance w eGFR Random Glucose Calcium Phosphorus Magnesium Active Medications Generic Name Dose Route Start Last Admin Trade Name Freq PRN Reason Stop Dose Admin Acetaminophen 650 mg 02/04/19 15:22 Tylenol - PO Q6H PRN FEVER Diphenhydramine HCl 25 mg 02/03/19 17:27 Benadryl - PO Q6H PRN FOR ITCHING Docusate Sodium 100 mg 02/03/19 22:00 02/04/19 13:47 Colace - PO 100 mg TID RAUL Administration Ferrous Sulfate 325 mg 02/04/19 10:00 02/04/19 10:44 Feosol - PO 325 mg DAILY RAUL Administration Folic Acid 1 mg 02/04/19 10:00 02/04/19 10:44 Folic Acid - PO 1 mg DAILY RAUL Administration Heparin Sodium (Porcine) 5,000 unit 02/03/19 22:00 02/04/19 13:46 Heparin - SQ 5,000 unit TID RAUL Administration Lactated Ringer's 1,000 mls @ 125 mls/hr 02/03/19 17:27 02/04/19 18:04 Lactated Ringers Solution IV Not Given ASDIR RAUL Cefazolin Sodium 1 gm in 50 mls @ 100 mls/hr 02/03/19 18:00 02/04/19 17:54 Ancef 1 Gm Premixed Ivpb - IVPB 100 mls/hr Q8H-IV RAUL Administration Morphine Sulfate 4 mg 02/04/19 13:00 Morphine Sulfate IVPUSH Q6H PRN PAIN LEVEL 7 - 10 Ondansetron HCl 4 mg 02/03/19 17:27 Zofran Injection IVPUSH Q6H PRN NAUSEA Oxycodone HCl 5 mg 02/04/19 13:00 Roxicodone - PO Q3H PRN PAIN LEVEL 1 - 3 Oxycodone HCl 10 mg 02/04/19 13:00 Roxicodone - PO Q3H PRN PAIN LEVEL 4 - 6 Oxycodone HCl 10 mg 02/04/19 13:00 02/04/19 13:47 Oxycontin - PO 10 mg BID RAUL Administration ASSESSMENT/PLAN: Patient is a 28 year old female with history of low back pain, with recent MRI findings revealing L5-S1 herniated disc, presented to the ED with worsening left lower back pain and leg weakness. #Low back pain 2/2 L5-S1 herniated disc -POD 1: L5-S1 laminectomies, posterior fusion -Surgery (Dr. Tinoco) consulted. -Pain control with PO oxycodone, Morphine for breakthrough pain -Madrigal discontinued -Regular diet -Physical therapy -OOB as tolerated, early ambulation #FEN -Not on any standing fluids -Electrolytes wnl, routine bmp monitoring -Regular diet #Prophylaxis -Heparin 5000unit sq tid #Disposition -full code -transfer to med-surg Visit type - Emergency Visit Emergency Visit: Yes ED Registration Date: 02/03/19 Care time: The patient presented to the Emergency Department on the above date and was hospitalized for further evaluation of their emergent condition. - New Patient This patient is new to me today: Yes Date on this admission: 02/04/19 - Critical Care Critical Care patient: No
[2019-02-04] MEDS ORDERED: diphenhydrAMINE HCL 25 MG CAPSULE (FP) PO PRN (18:17)
[2019-02-04] MEDS ORDERED: ONDANSETRON 4 MG/2 ML VIAL IVPUSH PRN (18:17)
[2019-02-04] MEDS ORDERED: LACTATED RINGERS SOLUTION 1,000 ML IV SCH (18:17)
[2019-02-04] MEDS: oxyCODONE HCL 10 MG SUSTAINED ACTING TABLET PO SCH (21:56)
[2019-02-05] MEDS ORDERED: CEFAZOLIN 1 GM/D5W 1 GM/50 ML BAG IVPB SCH (02:00)
[2019-02-05 07:19] LABS: BASO % 0.3 % (0-2.0); EOS % 0.5 % (0-4.5); HEMATOCRIT 30.6 % (32.4-45.2); LYMPH % 34.7 % (8-40); MCH 26.8 pg (25.7-33.7); MCHC 32.6 g/dl (32.0-36.0); MEAN CELL VOLUME 82.3 fl (80-96); MEAN PLT VOLUME 7.5 fl (7.5-11.1); MONO % 6.1 % (3.8-10.2); NEUT % 58.4 % (42.8-82.8); PLATELET COUNT 279 K/MM3 (134-434); RBC 3.72 M/mm3 (3.60-5.2); RDW 14.5 % (11.6-15.6); WHITE BLOOD COUNT 11.1 K/mm3 (4.0-10.0)
[2019-02-05 07:39] LABS: ANION GAP 5 MMOL/L (8-16); BLOOD UREA NITROGEN 13 mg/dL (7-18); CALCIUM 8.3 mg/dL (8.5-10.1); CHLORIDE 104 mmol/L (98-107); CO2 29 mmol/L (21-32); CREATININE 0.6 mg/dL (0.55-1.3); GLUCOSE,RANDOM 83 mg/dL (74-106); PHOSPHOROUS 2.9 mg/dL (2.5-4.9); POTASSIUM 3.8 mmol/L (3.5-5.1); SODIUM 137 mmol/L (136-145)
--- NOTE | 2019-02-05 09:29 | PN ---
Progress Note (short form) - Note Progress Note: POD 2, s/p L5-S1 PLIF Pt seen and examined. Reports pain feels slightly worse today as she did a lot of walking to the restroom yesterday. Toleratin PO, has been oob voiding. Continues to have some numbness in her b/l le's. Denies motor deficits, denies cp/sob, n/v/d. Vital Signs Temp 99.2 F 02/05/19 06:00 Pulse 73 02/05/19 06:00 Resp 20 02/05/19 06:00 BP 121/69 02/05/19 06:00 Pulse Ox 100 02/04/19 21:00 Intake & Output 02/04/19 02/04/19 02/05/19 11:59 23:59 11:59 Intake Total 1150 200 Output Total 2060 100 40 Balance -910 100 -40 Weight 196 lb 3.2 oz 194 lb 6 oz Intake: IV 1000 Lactated Ringers Solution 1000 1,000 ml @ 125 mls/hr IV ASDIR RAUL Rx#: [id number] IVPB 150 200 Output: Drainage 160 100 40 Back 160 100 40 Urine 1900 Madrigal 1900 Other: Voiding Method Indwelling Catheter Toilet # Unmeasured Voids Void 1 Weight Measurement Method Built in [facility] Built in [facility] CBC, BMP 02/05/19 06:10 02/05/19 06:10 Gen: A&O x3 Resp: breathing comfortably on RA Back: Dressing moderately saturated with serosanguinous drianage, removed. Incision c/d/i with no erythema. Drain in place, taken off of suction and removed without issue. New 4x4 and tegaderms placed over incision and drain site. Ext: b/l le's 5/5 dorsi/plantarflexion, 5/5 hip flex/ext. SILT b/l le's A/P: 28 y/o F w/ PMHx obesity, s/p recent fall down 2 stairs with resultant back pain, MRI revealing L5-S1 herniated disc a/w worsening pain and difficulty urinating concerning for cauda equina syndrome, now POD 2, s/p L5-S1 PLIF -Afebrile, VSS, labs stable CHRIS output 40ml overnight -Pt aware to notify RN aftervoiding for PVR (d/w RN) -Pain regimen reviewed, pt initiated on Oxy CR last night by medical team -Continue bowel regimen as ordered (Miralax and Senna added) -DVT prophylaxis with heparin 5000units q8hrs, early ambulation and b.l scds -PT -Dispo planning d/w attending Dr Curtis
[2019-02-05] MEDS ORDERED: ACETAMINOPHEN 325 MG TABLET (FP) PO PRN (09:36)
[2019-02-05] MEDS: FOLIC ACID 1 MG TABLET (FP) PO SCH (10:13)
[2019-02-05] MEDS: FERROUS SO4 325 MG TABLET (FP) PO SCH (10:14)
[2019-02-05] MEDS: oxyCODONE HCL 10 MG SUSTAINED ACTING TABLET PO SCH ×2 (10:14→21:19)
[2019-02-05] MEDS: DOCUSATE SODIUM 100 MG CAPSULE (FP) PO SCH ×3 (10:16→21:19)
[2019-02-05] MEDS: POLYETHYLENE GLYCOL 3350 119 GM BTL PO SCH (10:16)
[2019-02-05] MEDS ORDERED: POLYETHYLENE GLYCOL 3350 119 GM BTL PO ONE (11:36)
[2019-02-05] MEDS: HEPARIN NA (PORCINE) 5,000 UNITS/ML 1ML VIAL SQ SCH ×3 (13:49→21:19)
--- NOTE | 2019-02-05 17:20 | PN ---
Physical Exam: SUBJECTIVE: Patient seen and examined at bedside this morning. No acute events overnight. Patient has passed flatus and has urine output, but has not had any bowel movements yet. Otherwise, patient has walked with physical therapy but does not feel comfortable yet going home as she feels heavy pressure and pain on her back. Denies fever, chills, headache, chest pain, SOB, abdominal pain. OBJECTIVE: Vital Signs Temperature 98.8 F 02/05/19 14:00 Pulse Rate 86 02/05/19 14:00 Respiratory Rate 20 02/05/19 14:00 Blood Pressure 135/48 L 02/05/19 14:00 O2 Sat by Pulse Oximetry (%) 100 02/04/19 21:00 GENERAL: The patient is awake, alert, and fully oriented, in no acute distress. HEAD: Normal with no signs of trauma. EYES: PERRLA, EOMI, sclera anicteric, conjunctiva clear. ENT: oropharynx clear without exudates, moist mucous membranes. NECK: Trachea midline, full range of motion, supple. LUNGS: Breath sounds equal, clear to auscultation bilaterally. HEART: Regular rate and rhythm, S1, S2 without murmur, rub or gallop. ABDOMEN: Soft, nontender, nondistended, normoactive bowel sounds. EXTREMITIES: 2+ pulses, warm, well-perfused, no edema. NEUROLOGICAL: Cranial nerves II through XII grossly intact. Motor strength 5/5, sensation intact. Normal speech, gait not observed. PSYCH: Normal mood, normal affect. SKIN: Warm, dry, normal turgor, no rashes or lesions noted Laboratory Results - last 24 hr 02/04/19 02/05/19 02/05/19 17:00 06:10 06:10 WBC 12.2 H 11.1 H RBC 3.52 L 3.72 Hgb 9.4 L 10.0 L Hct 28.4 L 30.6 L MCV 80.9 82.3 MCH 26.8 26.8 MCHC 33.1 32.6 RDW 14.6 14.5 Plt Count 281 279 MPV 7.6 7.5 Absolute Neuts (auto) 6.5 Neutrophils % 58.4 D Lymphocytes % 34.7 D Monocytes % 6.1 D Eosinophils % 0.5 D Basophils % 0.3 Nucleated RBC % 0 Sodium 137 Potassium 3.8 Chloride 104 Carbon Dioxide 29 Anion Gap 5 L BUN 13 Creatinine 0.6 Creat Clearance w eGFR 118.19 Random Glucose 83 Calcium 8.3 L Phosphorus 2.9 Magnesium 2.0 Active Medications Generic Name Dose Route Start Last Admin Trade Name Freq PRN Reason Stop Dose Admin Acetaminophen 650 mg 02/05/19 09:36 Tylenol - PO Q4H PRN PAIN OR FEVER Diphenhydramine HCl 25 mg 02/04/19 18:17 Benadryl - PO Q6H PRN FOR ITCHING Docusate Sodium 100 mg 02/04/19 22:00 02/05/19 17:00 Colace - PO 100 mg TID [facility] Administration Ferrous Sulfate 325 mg 02/05/19 10:00 02/05/19 10:14 Feosol - PO 325 mg DAILY RAUL Administration Folic Acid 1 mg 02/05/19 10:00 02/05/19 10:13 Folic Acid - PO 1 mg DAILY RAUL Administration Heparin Sodium (Porcine) 5,000 unit 02/04/19 22:00 02/05/19 14:35 Heparin - SQ 5,000 unit TID [facility] Administration Lactated Ringer's 1,000 mls @ 125 mls/hr 02/04/19 18:17 02/04/19 18:58 Lactated Ringers Solution IV Not Given ASDIR [facility] Morphine Sulfate 4 mg 02/04/19 18:17 02/05/19 03:23 Morphine Sulfate IVPUSH 4 mg Q6H PRN Administration PAIN LEVEL 7 - 10 Ondansetron HCl 4 mg 02/04/19 18:17 Zofran Injection IVPUSH Q6H PRN NAUSEA Oxycodone HCl 5 mg 02/04/19 18:17 Roxicodone - PO Q3H PRN PAIN LEVEL 1 - 3 Oxycodone HCl 10 mg 02/04/19 18:17 Roxicodone - PO Q3H PRN PAIN LEVEL 4 - 6 Oxycodone HCl 10 mg 02/04/19 22:00 02/05/19 10:14 Oxycontin - PO 10 mg BID RAUL Administration Polyethylene Glycol 17 gm 02/05/19 10:00 02/05/19 10:16 Miralax (For Daily Use) - PO 17 grams DAILY RAUL Administration Senna 1 tab 02/05/19 22:00 Senna - PO HS [facility] ASSESSMENT/PLAN: Patient is a 28 year old female with history of low back pain, with recent MRI findings revealing L5-S1 herniated disc, presented to the ED with worsening left lower back pain and leg weakness. #Low back pain 2/2 L5-S1 herniated disc -POD 2: L5-S1 laminectomies, posterior fusion -Surgery (Dr. Tinoco) consulted. -Pain control with PO oxycodone, Morphine for breakthrough pain -Regular diet -Physical therapy -OOB as tolerated, early ambulation #FEN -Not on any standing fluids -Electrolytes wnl, routine bmp monitoring -Regular diet #Prophylaxis -Heparin 5000unit sq tid #Disposition -full code -for possible discharge tomorrow Visit type - Emergency Visit Emergency Visit: Yes ED Registration Date: 02/03/19 Care time: The patient presented to the Emergency Department on the above date and was hospitalized for further evaluation of their emergent condition. - New Patient This patient is new to me today: No - Critical Care Critical Care patient: No
--- NOTE | 2019-02-05 19:19 | PATH ---
Surgical Pathology Report Patient Name: ÁNGELA CRUMP Med. Rec. #: [id number] /Age/Gender: 1990 (Age: 28) / F Account: [id number] Location: [address] [place] [address] Taken: 02/03/2019 Received: 02/04/2019 Reported: 02/05/2019 Physicians: Peña German M.D. PHYSICIAN EMERGENCY DEPT Specimen(s) Received L5-S1 DISC Clinical History Herniated disc L5-S1 Final Diagnosis DISC, L5-S1, DISCECTOMY AND FUSION: BENIGN INTERVERTEBRAL DISC TISSUE, DENSE FIBROCONNECTIVE TISSUE, AND SCANT ADIPOSE TISSUE. Electronically Signed Radha Segovia M.D. Gross Description Received in formalin labeled "L5-S1 disc," is a 4.0 x 3.3 x 0.4 cm aggregate of lazo fragments of fibrocartilaginous tissue. A litigation claim representative portion is submitted in one cassette. /02/04/2019 saudi/02/04/2019
[2019-02-05] MEDS: SENNOSIDES 8.6MG TABLET (FP) PO SCH (21:19)
--- NOTE | 2019-02-05 21:28 | PN ---
Teaching Attending Note Name of Resident: Nanette Napier ATTENDING PHYSICIAN STATEMENT I saw and evaluated the patient. I reviewed the resident's note and discussed the case with the resident. I agree with the resident's findings and plan as documented. SUBJECTIVE: Patient c/o having worsening pain. OBJECTIVE: Vital Signs Temperature 98.4 F 02/05/19 18:00 Pulse Rate 84 02/05/19 18:00 Respiratory Rate 20 02/05/19 18:00 Blood Pressure 110/68 02/05/19 18:00 O2 Sat by Pulse Oximetry (%) 100 02/04/19 21:00 GENERAL: Awake, alert, and fully oriented, in no acute distress. HEAD: Normal with no signs of trauma. EYES: Pupils equal, round and reactive to light, extraocular movements intact, sclera anicteric, conjunctiva clear.. EARS, NOSE, THROAT: Moist mucous membranes. NECK: Normal range of motion, supple LUNGS: Breath sounds equal, clear to auscultation bilaterally. No wheezes, and no crackles. No accessory muscle use. HEART: Regular rate and rhythm, normal S1 and S2 without murmur, rub or gallop. ABDOMEN: Soft, nontender, not distended, normoactive bowel sounds, no guarding, no rebound, no masses. EXTREMITIES: 2+ pulses, warm, well-perfused. No cyanosis. No clubbing. No peripheral edema. NEUROLOGICAL: Cranial nerves II-XII grossly intact. rest of exam per neurosx. PSYCHIATRIC: Cooperative. Good eye contact. Appropriate mood and affect. SKIN: Warm, dry. CBCD WBC 11.1 K/mm3 (4.0-10.0) H 02/05/19 06:10 RBC 3.72 M/mm3 (3.60-5.2) 02/05/19 06:10 Hgb 10.0 GM/dL (10.7-15.3) L 02/05/19 06:10 Hct 30.6 % (32.4-45.2) L 02/05/19 06:10 MCV 82.3 fl (80-96) 02/05/19 06:10 MCHC 32.6 g/dl (32.0-36.0) 02/05/19 06:10 RDW 14.5 % (11.6-15.6) 02/05/19 06:10 Plt Count 279 K/MM3 (134-434) 02/05/19 06:10 MPV 7.5 fl (7.5-11.1) 02/05/19 06:10 CMP Sodium 137 mmol/L (136-145) 02/05/19 06:10 Potassium 3.8 mmol/L (3.5-5.1) 02/05/19 06:10 Chloride 104 mmol/L (98-107) 02/05/19 06:10 Carbon Dioxide 29 mmol/L (21-32) 02/05/19 06:10 Anion Gap 5 MMOL/L (8-16) L 02/05/19 06:10 BUN 13 mg/dL (7-18) 02/05/19 06:10 Creatinine 0.6 mg/dL (0.55-1.3) 02/05/19 06:10 Creat Clearance w eGFR 118.19 (>60) 02/05/19 06:10 Random Glucose 83 mg/dL (74-106) 02/05/19 06:10 Calcium 8.3 mg/dL (8.5-10.1) L 02/05/19 06:10 Total Bilirubin 0.2 mg/dL (0.2-1) 02/03/19 06:14 AST 19 U/L (15-37) 02/03/19 06:14 ALT 19 U/L (13-61) 02/03/19 06:14 Alkaline Phosphatase 102 U/L (45-117) 02/03/19 06:14 Total Protein 7.0 g/dl (6.4-8.2) 02/03/19 06:14 Albumin 3.8 g/dl (3.4-5.0) 02/03/19 06:14 Current Medications Generic Name Dose Route Start Last Admin Trade Name Freq PRN Reason Stop Dose Admin Acetaminophen 650 mg 02/05/19 09:36 Tylenol - PO Q4H PRN PAIN OR FEVER Diphenhydramine HCl 25 mg 02/04/19 18:17 Benadryl - PO Q6H PRN FOR ITCHING Docusate Sodium 100 mg 02/04/19 22:00 02/05/19 21:19 Colace - PO 100 mg TID RAUL Administration Ferrous Sulfate 325 mg 02/05/19 10:00 04/12/19 10:14 Feosol - PO 325 mg DAILY RAUL Administration Folic Acid 1 mg 02/05/19 10:00 02/05/19 10:13 Folic Acid - PO 1 mg DAILY RAUL Administration Heparin Sodium (Porcine) 5,000 unit 02/04/19 22:00 02/05/19 21:19 Heparin - SQ 5,000 unit TID RAUL Administration Lactated Ringer's 1,000 mls @ 125 mls/hr 02/04/19 18:17 02/04/19 18:58 Lactated Ringers Solution IV Not Given ASDIR RAUL Morphine Sulfate 4 mg 02/04/19 18:17 02/05/19 03:23 Morphine Sulfate IVPUSH 4 mg Q6H PRN Administration PAIN LEVEL 7 - 10 Ondansetron HCl 4 mg 02/04/19 18:17 Zofran Injection IVPUSH Q6H PRN NAUSEA Oxycodone HCl 5 mg 02/04/19 18:17 Roxicodone - PO Q3H PRN PAIN LEVEL 1 - 3 Oxycodone HCl 10 mg 02/04/19 18:17 Roxicodone - PO Q3H PRN PAIN LEVEL 4 - 6 Oxycodone HCl 10 mg 02/04/19 22:00 02/05/19 21:19 Oxycontin - PO 10 mg BID RAUL Administration Polyethylene Glycol 17 gm 02/05/19 10:00 02/05/19 10:16 Miralax (For Daily Use) - PO 17 grams DAILY RAUL Administration Senna 1 tab 02/05/19 22:00 02/05/19 21:19 Senna - PO 1 tab HS RAUL Administration ASSESSMENT AND PLAN: Patient is a 28yo female with PMHx of obesity and back pain ; Dr Tinoco's patient, with recent MRI revealing L5-S1 herniated disc, who presents today worsened with left lower back pain since last night 06/05. # POD #2 s/p L5/S1 laminectomies, posterior fusion, due to L5-S1 herniated disc , and cauda equina syndrome Pain control continue. DVT ppx heparin as per
[2019-02-06] MEDS: oxyCODONE HCL 5 MG TABLET PO PRN ×2 (00:41→13:25)
[2019-02-06] MEDS: HEPARIN NA (PORCINE) 5,000 UNITS/ML 1ML VIAL SQ SCH ×3 (06:12→22:06)
[2019-02-06] MEDS: DOCUSATE SODIUM 100 MG CAPSULE (FP) PO SCH ×3 (06:12→22:06)
[2019-02-06] MEDS: FOLIC ACID 1 MG TABLET (FP) PO SCH (09:31)
[2019-02-06] MEDS: FERROUS SO4 325 MG TABLET (FP) PO SCH (09:31)
[2019-02-06] MEDS: POLYETHYLENE GLYCOL 3350 119 GM BTL PO SCH (09:33)
[2019-02-06] MEDS: oxyCODONE HCL 10 MG SUSTAINED ACTING TABLET PO SCH ×2 (09:39→22:06)
--- NOTE | 2019-02-06 20:17 | PN ---
Progress Note (short form) - Note Progress Note: Patient is feeling better, less pain today. Vital Signs Temperature 99.4 F 02/06/19 14:39 Pulse Rate 93 H 02/06/19 14:39 Respiratory Rate 16 02/06/19 10:00 Blood Pressure 126/73 02/06/19 14:39 O2 Sat by Pulse Oximetry (%) 97 02/06/19 09:00 GENERAL: Awake, alert, and fully oriented, in no acute distress. HEAD: Normal with no signs of trauma. EYES: Pupils equal, round and reactive to light, extraocular movements intact, sclera anicteric, conjunctiva clear.. EARS, NOSE, THROAT: Moist mucous membranes. NECK: Normal range of motion, supple LUNGS: Breath sounds equal, clear to auscultation bilaterally. No wheezes, and no crackles. No accessory muscle use. HEART: Regular rate and rhythm, normal S1 and S2 without murmur, rub or gallop. ABDOMEN: Soft, nontender, not distended, normoactive bowel sounds, no guarding, no rebound, no masses. EXTREMITIES: 2+ pulses, warm, well-perfused. No cyanosis. No clubbing. No peripheral edema. NEUROLOGICAL: Cranial nerves II-XII grossly intact. rest of exam per neurosx. PSYCHIATRIC: Cooperative. Good eye contact. Appropriate mood and affect. SKIN: Warm, dry. CBCD WBC 11.1 K/mm3 (4.0-10.0) H 02/05/19 06:10 RBC 3.72 M/mm3 (3.60-5.2) 02/05/19 06:10 Hgb 10.0 GM/dL (10.7-15.3) L 02/05/19 06:10 Hct 30.6 % (32.4-45.2) L 02/05/19 06:10 MCV 82.3 fl (80-96) 02/05/19 06:10 MCHC 32.6 g/dl (32.0-36.0) 02/05/19 06:10 RDW 14.5 % (11.6-15.6) 02/05/19 06:10 Plt Count 279 K/MM3 (134-434) 02/05/19 06:10 MPV 7.5 fl (7.5-11.1) 02/05/19 06:10 CMP Sodium 137 mmol/L (136-145) 02/05/19 06:10 Potassium 3.8 mmol/L (3.5-5.1) 02/05/19 06:10 Chloride 104 mmol/L (98-107) 02/05/19 06:10 Carbon Dioxide 29 mmol/L (21-32) 02/05/19 06:10 Anion Gap 5 MMOL/L (8-16) L 02/05/19 06:10 BUN 13 mg/dL (7-18) 02/05/19 06:10 Creatinine 0.6 mg/dL (0.55-1.3) 02/05/19 06:10 Creat Clearance w eGFR 118.19 (>60) 02/05/19 06:10 Random Glucose 83 mg/dL (74-106) 02/05/19 06:10 Calcium 8.3 mg/dL (8.5-10.1) L 02/05/19 06:10 Total Bilirubin 0.2 mg/dL (0.2-1) 02/03/19 06:14 AST 19 U/L (15-37) 02/03/19 06:14 ALT 19 U/L (13-61) 02/03/19 06:14 Alkaline Phosphatase 102 U/L (45-117) 02/03/19 06:14 Total Protein 7.0 g/dl (6.4-8.2) 02/03/19 06:14 Albumin 3.8 g/dl (3.4-5.0) 02/03/19 06:14 Current Medications Generic Name Dose Route Start Last Admin Trade Name Freq PRN Reason Stop Dose Admin Acetaminophen 650 mg 02/05/19 09:36 Tylenol - PO Q4H PRN PAIN OR FEVER Diphenhydramine HCl 25 mg 02/04/19 18:17 Benadryl - PO Q6H PRN FOR ITCHING Docusate Sodium 100 mg 02/04/19 22:00 02/06/19 13:24 Colace - PO 100 mg TID RAUL Administration Ferrous Sulfate 325 mg 02/05/19 10:00 02/06/19 09:31 Feosol - PO 325 mg DAILY RAUL Administration Folic Acid 1 mg 02/05/19 10:00 02/06/19 09:31 Folic Acid - PO 1 mg DAILY RAUL Administration Heparin Sodium (Porcine) 5,000 unit 02/04/19 22:00 02/06/19 14:14 Heparin - SQ 5,000 unit TID RAUL Administration Lactated Ringer's 1,000 mls @ 125 mls/hr 02/04/19 18:17 02/04/19 18:58 Lactated Ringers Solution IV Not Given ASDIR RAUL Morphine Sulfate 4 mg 02/04/19 18:17 02/05/19 03:23 Morphine Sulfate IVPUSH 4 mg Q6H PRN Administration PAIN LEVEL 7 - 10 Ondansetron HCl 4 mg 02/04/19 18:17 Zofran Injection IVPUSH Q6H PRN NAUSEA Oxycodone HCl 5 mg 02/04/19 18:17 02/06/19 15:40 Roxicodone - PO 5 mg Q3H PRN Administration PAIN LEVEL 1 - 3 Oxycodone HCl 10 mg 02/04/19 18:17 02/06/19 13:25 Roxicodone - PO 10 mg Q3H PRN Administration PAIN LEVEL 4 - 6 Oxycodone HCl 10 mg 02/04/19 22:00 02/06/19 09:39 Oxycontin - PO Not Given BID RAUL Polyethylene Glycol 17 gm 02/05/19 10:00 02/06/19 09:33 Miralax (For Daily Use) - PO 17 grams DAILY RAUL Administration Senna 1 tab 02/05/19 22:00 02/05/19 21:19 Senna - PO 1 tab HS RAUL Administration Home Medications Medication Instructions Recorded Acetaminophen [Tylenol .Regular 650 mg PO Q6H PRN tablet 02/05/19 Strength -] Docusate Sodium [Colace -] 100 mg PO TID #90 capsule 02/05/19 Ferrous Sulfate [Feosol] 325 mg PO DAILY ud 02/05/19 Folic Acid - 1 mg PO DAILY tablet 02/05/19 Polyethylene Glycol 3350 [Miralax 17 gm PO DAILY #1 bottle 02/05/19 119 gm Btl -] Sennosides [Senna -] 1 tab PO HS #15 tablet 02/05/19 ASSESSMENT AND PLAN: Patient is a 28yo female with PMHx of obesity and back pain ; Dr Tinoco's patient, with recent MRI revealing L5-S1 herniated disc, who presents today worsened with left lower back pain since last night 06/05. # POD #3 s/p L5/S1 laminectomies, posterior fusion, due to L5-S1 herniated disc , and cauda equina syndrome Pain control continue. PT ordered. DVT ppx heparin as per Visit type - Emergency Visit Emergency Visit: Yes ED Registration Date: 02/03/19 Care time: The patient presented to the Emergency Department on the above date and was hospitalized for further evaluation of their emergent condition. - New Patient This patient is new to me today: No - Critical Care Critical Care patient: No - Discharge Referral Referred to [facility] Med P.C.: No
[2019-02-06] MEDS: SENNOSIDES 8.6MG TABLET (FP) PO SCH (22:06)
[2019-02-07] MEDS: oxyCODONE HCL 5 MG TABLET PO PRN (05:09)
[2019-02-07] MEDS: DOCUSATE SODIUM 100 MG CAPSULE (FP) PO SCH ×2 (05:09→15:33)
[2019-02-07] MEDS: HEPARIN NA (PORCINE) 5,000 UNITS/ML 1ML VIAL SQ SCH ×2 (05:09→15:33)
[2019-02-07] MEDS: oxyCODONE HCL 10 MG SUSTAINED ACTING TABLET PO SCH (10:01)
[2019-02-07] MEDS: FERROUS SO4 325 MG TABLET (FP) PO SCH (10:02)
[2019-02-07] MEDS: FOLIC ACID 1 MG TABLET (FP) PO SCH (10:02)
[2019-02-07] MEDS: POLYETHYLENE GLYCOL 3350 119 GM BTL PO SCH (10:04)
--- NOTE | 2019-02-07 11:20 | PN ---
Physical Exam: SUBJECTIVE: Patient seen and examined Resting in bed NAD. afebrile hemodynamically stable, no acute events, pain controlled. has been almbulating 7 ft with pt x 2 days. will ry stairs today ( has stairs at home). denies urinary or bowel incontinence or straining. denies LE paresthesia or weakness but reports mild tingling in RLE. Tolerating PO, + flatus, no B.M. denies cp, cough, calf pain, sob OBJECTIVE: Vital Signs Period Temp Pulse Resp BP Sys/Giraldo Pulse Ox Last 24 Hr 99.2 F-99.4 F 93-108 17 126-136/65-73 GENERAL: Awake, alert, and fully oriented, in no acute distress. HEAD: Normal with no signs of trauma. EYES: Pupils equal, round and reactive to light, extraocular movements intact, sclera anicteric, conjunctiva clear. No lid lag. EARS, NOSE, THROAT: Moist mucous membranes. NECK: Normal range of motion, supple LUNGS: Breath sounds equal, clear to auscultation bilaterally. No wheezes, and no crackles. No accessory muscle use. HEART: Regular rate and rhythm, normal S1 and S2 without murmur, rub or gallop. ABDOMEN: Soft, nontender, not distended, normoactive bowel sounds, no guarding, no rebound, no masses. No hepatomegaly or splenomegaly. MUSCULOSKELETAL: No CVA tenderness. UPPER EXTREMITIES: 2+ pulses, warm, well-perfused. No cyanosis. No clubbing. No peripheral edema. LOWER EXTREMITIES: 2+ pulses, warm, well-perfused. No calf tenderness. No peripheral edema. NEUROLOGICAL: Cranial nerves II-XII grossly intact. LLE increase reflexes (2+) compared to RLE (1+), equal sensation and strength in b/l extremities. PSYCHIATRIC: Cooperative. Good eye contact. Appropriate mood and affect. SKIN: Warm, dry Active Medications Generic Name Dose Route Start Last Admin Trade Name Freq PRN Reason Stop Dose Admin Acetaminophen 650 mg 02/05/19 09:36 Tylenol - PO Q4H PRN PAIN OR FEVER Diphenhydramine HCl 25 mg 02/04/19 18:17 Benadryl - PO Q6H PRN FOR ITCHING Docusate Sodium 100 mg 02/04/19 22:00 02/07/19 05:09 Colace - PO 100 mg TID RAUL Administration Ferrous Sulfate 325 mg 02/05/19 10:00 02/07/19 10:02 Feosol - PO 325 mg DAILY RAUL Administration Folic Acid 1 mg 02/05/19 10:00 02/07/19 10:02 Folic Acid - PO 1 mg DAILY RAUL Administration Heparin Sodium (Porcine) 5,000 unit 02/04/19 22:00 02/07/19 05:09 Heparin - SQ 5,000 unit TID RAUL Administration Lactated Ringer's 1,000 mls @ 125 mls/hr 02/04/19 18:17 02/04/19 18:58 Lactated Ringers Solution IV Not Given ASDIR RAUL Morphine Sulfate 4 mg 02/04/19 18:17 02/05/19 03:23 Morphine Sulfate IVPUSH 4 mg Q6H PRN Administration PAIN LEVEL 7 - 10 Ondansetron HCl 4 mg 02/04/19 18:17 Zofran Injection IVPUSH Q6H PRN NAUSEA Oxycodone HCl 5 mg 02/04/19 18:17 02/06/19 15:40 Roxicodone - PO 5 mg Q3H PRN Administration PAIN LEVEL 1 - 3 Oxycodone HCl 10 mg 02/04/19 18:17 02/07/19 05:09 Roxicodone - PO 10 mg Q3H PRN Administration PAIN LEVEL 4 - 6 Oxycodone HCl 10 mg 02/04/19 22:00 02/07/19 10:01 Oxycontin - PO 10 mg BID RAUL Administration Polyethylene Glycol 17 gm 02/05/19 10:00 02/07/19 10:04 Miralax (For Daily Use) - PO 17 grams DAILY RAUL Administration Senna 1 tab 02/05/19 22:00 02/06/19 22:06 Senna - PO 1 tab HS RAUL Administration ASSESSMENT/PLAN: This is a 28 yo F with PMH of obesity and back pain, Dr Villanueva patient, with recent MRI revealing L5-S1 herniated disc, who presents due to worsened left lower back pain since last night 06/05. Lumbar pain exacerbation due to L5-S1 herniated disc/cauda equina POD2 s/p laminectomy -continue pain management with oxycodone 5 and 10 PRN, tylenol -tolerating regular diet stop IVF -continue stool softners -F/U PT, if able to climb stairs can D/C home Visit type - Emergency Visit Emergency Visit: Yes ED Registration Date: 02/03/19 Care time: The patient presented to the Emergency Department on the above date and was hospitalized for further evaluation of their emergent condition. - New Patient This patient is new to me today: No - Critical Care Critical Care patient: No - Discharge Referral Referred to [facility] Med P.C.: No
[2019-02-07 14:17] VITALS: BP 127/76; PULSE 87; TEMP 98.5
--- NOTE | 2019-02-07 16:04 | DS ---
Physical Examination Vital Signs: Vital Signs Temperature 98.5 F 02/07/19 14:14 Pulse Rate 87 02/07/19 14:14 Respiratory Rate 18 02/07/19 09:00 Blood Pressure 127/76 02/07/19 14:14 O2 Sat by Pulse Oximetry (%) 97 02/07/19 09:00 Labs: CBC, BMP 02/05/19 06:10 02/05/19 06:10 Discharge Summary Reason For Visit: LBP Current Active Problems Disk prolapse (Acute) Low back pain (Acute) Condition: Good - Instructions Diet, Activity, Other Instructions: Your visit You were admitted to the hospital because you had severe back pain. You had a back surgery to fix the herniated disc. Please refer below for further instructions. Follow-up -Please follow-up with your primary care doctor (Dr. Mckeon) within 1 week. -Please follow-up with neurosurgery (Dr. Tinooc). Call the office to schedule an appointment. Post Operative Instructions Physical Activity Resume your normal everyday activity as tolerated. No heavy lifting or exercise until seen by your surgeon. You may walk unlimited amounts and climb stairs. You may resume driving the car when you feel safe and comfortable behind the wheel and you are no longer wearing your brace. Do not operate a vehicle while taking narcotic medication. Brace If you had back surgery, wear TLSO Brace whenever out of bed. May remove to sleep and shower. If you had neck surgery, wear surgical collar 23 hr/day. Remove to shower only. Wound Care Keep your incision clean, dry and covered at all times. Apply an occlusive dressing (Saran wrap or Tegaderm) when showering to avoid getting your incision wet. Do not submerge incision or apply ointments or creams. The indigo will be removed in the office in 10-14 days post-op. Diet There are no dietary restrictions. Eat healthy, high-fiber foods. Drink 6-8 glasses of liquid each day. This will assist in keeping your bowels regular. Pain Management You may take Tylenol or acetaminophen. Any pain prescription medication ordered should be taken as prescribed for moderate to severe pain. Do not drink alcohol, drive, or operate heavy machinery while taking narcotic pain medications. Do not take any Ibuprofen (Motrin, Aleve, Advil, etc) for 3 months unless otherwise directed by your surgeon. Call Dr German for any of the following: Severe pain not relieved by medication Fever of 101 or higher Excessive bleeding or drainage on dressing Inability to urinate Any chest pain or shortness of breath, seek Emergency Care. Call the office to confirm a post-operative appointment for 2-3 weeks post-op Peña Tinoco MD [facility] [address] [place] [address] Referrals: Peña Tinoco MD, FAANS [Staff Physician] - Steve Mckeon MD [Primary Care Provider] - Disposition: HOME - Home Medications Comprehensive Discharge Medication List: Ambulatory Orders Acetaminophen [Tylenol .Regular Strength -] 650 mg PO Q6H PRN tablet 02/05/19 Docusate Sodium [Colace -] 100 mg PO TID #90 capsule 02/05/19 Ferrous Sulfate [Feosol] 325 mg PO DAILY ud 02/05/19 Folic Acid - 1 mg PO DAILY tablet 02/05/19 Polyethylene Glycol 3350 [Miralax 119 gm Btl -] 17 gm PO DAILY #1 bottle Sennosides [Senna -] 1 tab PO HS #15 tablet 02/05/19
--- NOTE | 2019-02-07 16:07 | DS ---
Physical Exam: SUBJECTIVE: Patient seen and examined Resting in bed NAD. afebrile hemodynamically stable, no acute events, pain controlled. has been almbulating 7 ft with pt x 2 days. will ry stairs today ( has stairs at home). denies urinary or bowel incontinence or straining. denies LE paresthesia or weakness but reports mild tingling in RLE. Tolerating PO, + flatus, no B.M. denies cp, cough, calf pain, sob OBJECTIVE: Vital Signs Period Temp Pulse Resp BP Sys/Giraldo Pulse Ox Last 24 Hr 97.9 F-99.2 F 87-108 17-18 118-136/57-76 97 PHYSICAL EXAM GENERAL: Awake, alert, and fully oriented, in no acute distress. HEAD: Normal with no signs of trauma. EYES: Pupils equal, round and reactive to light, extraocular movements intact, sclera anicteric, conjunctiva clear. No lid lag. EARS, NOSE, THROAT: Moist mucous membranes. NECK: Normal range of motion, supple LUNGS: Breath sounds equal, clear to auscultation bilaterally. No wheezes, and no crackles. No accessory muscle use. HEART: Regular rate and rhythm, normal S1 and S2 without murmur, rub or gallop. ABDOMEN: Soft, nontender, not distended, normoactive bowel sounds, no guarding, no rebound, no masses. No hepatomegaly or splenomegaly. MUSCULOSKELETAL: No CVA tenderness. UPPER EXTREMITIES: 2+ pulses, warm, well-perfused. No cyanosis. No clubbing. No peripheral edema. LOWER EXTREMITIES: 2+ pulses, warm, well-perfused. No calf tenderness. No peripheral edema. NEUROLOGICAL: Cranial nerves II-XII grossly intact. LLE increase reflexes (2+) compared to RLE (1+), equal sensation and strength in b/l extremities. PSYCHIATRIC: Cooperative. Good eye contact. Appropriate mood and affect. SKIN: Warm, dry LABS HOSPITAL COURSE: Date of Admission:02/03/19 This is a 28 yo F with PMH of obesity and back pain, Dr Villanueva patient, with recent MRI revealing L5-S1 herniated disc, who presented due to worsened left lower back pain since the night before 06/05, not alleviated by valium. pain was radiating down LLE, is associated with LLE numbness and weakness, as well as difficulty urinating. Patient was directed by Dr Tinoco to come in for surgery. Patient was diagnosed with L5-S1 herniated disc, and cauda equina syndrome and underwent L5/S1 laminectomies and posterior fusion. She did well in post op, tolerating PT including climbing stairs. She was discharged home on POD2 with a walker. Date of Discharge: 02/07/19 Minutes to complete discharge: 45 Discharge Summary Reason For Visit: LBP Current Active Problems Disk prolapse (Acute) Low back pain (Acute) Condition: Good - Instructions Diet, Activity, Other Instructions: Your visit You were admitted to the hospital because you had severe back pain. You had a back surgery to fix the herniated disc. Please refer below for further instructions. Follow-up -Please follow-up with your primary care doctor (Dr. Mckeon) within 1 week. -Please follow-up with neurosurgery (Dr. Tinoco). Call the office to schedule an appointment. Post Operative Instructions Physical Activity Resume your normal everyday activity as tolerated. No heavy lifting or exercise until seen by your surgeon. You may walk unlimited amounts and climb stairs. You may resume driving the car when you feel safe and comfortable behind the wheel and you are no longer wearing your brace. Do not operate a vehicle while taking narcotic medication. Brace If you had back surgery, wear TLSO Brace whenever out of bed. May remove to sleep and shower. If you had neck surgery, wear surgical collar 23 hr/day. Remove to shower only. Wound Care Keep your incision clean, dry and covered at all times. Apply an occlusive dressing (Saran wrap or Tegaderm) when showering to avoid getting your incision wet. Do not submerge incision or apply ointments or creams. The indigo will be removed in the office in 10-14 days post-op. Diet There are no dietary restrictions. Eat healthy, high-fiber foods. Drink 6-8 glasses of liquid each day. This will assist in keeping your bowels regular. Pain Management You may take Tylenol or acetaminophen. Any pain prescription medication ordered should be taken as prescribed for moderate to severe pain. Do not drink alcohol, drive, or operate heavy machinery while taking narcotic pain medications. Do not take any Ibuprofen (Motrin, Aleve, Advil, etc) for 3 months unless otherwise directed by your surgeon. Call Dr German for any of the following: Severe pain not relieved by medication Fever of 101 or higher Excessive bleeding or drainage on dressing Inability to urinate Any chest pain or shortness of breath, seek Emergency Care. Call the office to confirm a post-operative appointment for 2-3 weeks post-op Peña Tinoco MD [facility] [address] [place] [address] Referrals: Peña Tinoco MD, FAANS [Staff Physician] - Steve Mckeon MD [Primary Care Provider] - Disposition: HOME - Home Medications Comprehensive Discharge Medication List: Ambulatory Orders Acetaminophen [Tylenol .Regular Strength -] 650 mg PO Q6H PRN tablet 02/05/19 Docusate Sodium [Colace -] 100 mg PO TID #90 capsule 02/05/19 Ferrous Sulfate [Feosol] 325 mg PO DAILY ud 02/05/19 Folic Acid - 1 mg PO DAILY tablet 02/05/19 Polyethylene Glycol 3350 [Miralax 119 gm Btl -] 17 gm PO DAILY #1 bottle Sennosides [Senna -] 1 tab PO HS #15 tablet 02/05/19 Problem List - Problems (1) Disk prolapse Code(s): MIQ7508 - Qualifiers: Spinal region: lumbosacral Qualified Code(s): M51.27 - Other intervertebral disc displacement, lumbosacral region (2) Low back pain Code(s): M54.5 - LOW BACK PAIN Qualifiers: Chronicity: acute Back pain laterality: unspecified Sciatica presence: unspecified whether sciatica present Qualified Code(s): M54.5 - Low back pain This patient is new to me today: No Emergency Visit: Yes ED Registration Date: 02/03/19 Care time: The patient presented to the Emergency Department on the above date and was hospitalized for further evaluation of their emergent condition. Critical Care patient: No - Discharge Referral Referred to [facility] No
--- NOTE | 2019-02-07 18:20 | PN ---
Teaching Attending Note Name of Resident: Elina Lopez ATTENDING PHYSICIAN STATEMENT I saw and evaluated the patient. I reviewed the resident's note and discussed the case with the resident. I agree with the resident's findings and plan as documented. SUBJECTIVE: Patient is feeling better, no acute distress. OBJECTIVE: Vital Signs Temperature 98.5 F 02/07/19 14:14 Pulse Rate 87 02/07/19 14:14 Respiratory Rate 18 02/07/19 09:00 Blood Pressure 127/76 02/07/19 14:14 O2 Sat by Pulse Oximetry (%) 97 02/07/19 09:00 GENERAL: Awake, alert, and fully oriented, in no acute distress. HEAD: Normal with no signs of trauma. EYES: Pupils equal, round and reactive to light, extraocular movements intact, sclera anicteric, conjunctiva clear.. EARS, NOSE, THROAT: Moist mucous membranes. NECK: Normal range of motion, supple LUNGS: Breath sounds equal, clear to auscultation bilaterally. No wheezes, and no crackles. No accessory muscle use. HEART: Regular rate and rhythm, normal S1 and S2 without murmur, rub or gallop. ABDOMEN: Soft, nontender, not distended, normoactive bowel sounds, no guarding, no rebound, no masses. EXTREMITIES: 2+ pulses, warm, well-perfused. No cyanosis. No clubbing. No peripheral edema. NEUROLOGICAL: Cranial nerves II-XII grossly intact. rest of exam per neurosx. PSYCHIATRIC: Cooperative. Good eye contact. Appropriate mood and affect. SKIN: Warm, dry. CBCD WBC 11.1 K/mm3 (4.0-10.0) H 02/05/19 06:10 RBC 3.72 M/mm3 (3.60-5.2) 02/05/19 06:10 Hgb 10.0 GM/dL (10.7-15.3) L 02/05/19 06:10 Hct 30.6 % (32.4-45.2) L 02/05/19 06:10 MCV 82.3 fl (80-96) 02/05/19 06:10 MCHC 32.6 g/dl (32.0-36.0) 02/05/19 06:10 RDW 14.5 % (11.6-15.6) 02/05/19 06:10 Plt Count 279 K/MM3 (134-434) 02/05/19 06:10 MPV 7.5 fl (7.5-11.1) 02/05/19 06:10 CMP Sodium 137 mmol/L (136-145) 02/05/19 06:10 Potassium 3.8 mmol/L (3.5-5.1) 02/05/19 06:10 Chloride 104 mmol/L (98-107) 02/05/19 06:10 Carbon Dioxide 29 mmol/L (21-32) 02/05/19 06:10 Anion Gap 5 MMOL/L (8-16) L 02/05/19 06:10 BUN 13 mg/dL (7-18) 02/05/19 06:10 Creatinine 0.6 mg/dL (0.55-1.3) 02/05/19 06:10 Creat Clearance w eGFR 118.19 (>60) 02/05/19 06:10 Random Glucose 83 mg/dL (74-106) 02/05/19 06:10 Calcium 8.3 mg/dL (8.5-10.1) L 02/05/19 06:10 Total Bilirubin 0.2 mg/dL (0.2-1) 02/03/19 06:14 AST 19 U/L (15-37) 02/03/19 06:14 ALT 19 U/L (13-61) 02/03/19 06:14 Alkaline Phosphatase 102 U/L (45-117) 02/03/19 06:14 Total Protein 7.0 g/dl (6.4-8.2) 02/03/19 06:14 Albumin 3.8 g/dl (3.4-5.0) 02/03/19 06:14 Current Medications Generic Name Dose Route Start Last Admin Trade Name Freq PRN Reason Stop Dose Admin Acetaminophen 650 mg 02/05/19 09:36 Tylenol - PO Q4H PRN PAIN OR FEVER Diphenhydramine HCl 25 mg 02/04/19 18:17 Benadryl - PO Q6H PRN FOR ITCHING Docusate Sodium 100 mg 02/04/19 22:00 02/07/19 15:33 Colace - PO 100 mg TID RAUL Administration Ferrous Sulfate 325 mg 02/05/19 10:00 02/07/19 10:02 Feosol - PO 325 mg DAILY RAUL Administration Folic Acid 1 mg 02/05/19 10:00 02/07/19 10:02 Folic Acid - PO 1 mg DAILY RAUL Administration Heparin Sodium (Porcine) 5,000 unit 02/04/19 22:00 02/07/19 15:33 Heparin - SQ Not Given TID RAUL Ondansetron HCl 4 mg 02/04/19 18:17 Zofran Injection IVPUSH Q6H PRN NAUSEA Oxycodone HCl 5 mg 02/04/19 18:17 02/06/19 15:40 Roxicodone - PO 5 mg Q3H PRN Administration PAIN LEVEL 1 - 3 Oxycodone HCl 10 mg 02/04/19 18:17 02/07/19 05:09 Roxicodone - PO 10 mg Q3H PRN Administration PAIN LEVEL 4 - 6 Polyethylene Glycol 17 gm 02/05/19 10:00 02/07/19 10:04 Miralax (For Daily Use) - PO 17 grams DAILY RAUL Administration Senna 1 tab 02/05/19 22:00 02/06/19 22:06 Senna - PO 1 tab HS RAUL Administration Home Medications Medication Instructions Recorded Acetaminophen [Tylenol .Regular 650 mg PO Q6H PRN tablet 02/05/19 Strength -] Docusate Sodium [Colace -] 100 mg PO TID #90 capsule 02/05/19 Ferrous Sulfate [Feosol] 325 mg PO DAILY ud 02/05/19 Folic Acid - 1 mg PO DAILY tablet 02/05/19 Polyethylene Glycol 3350 [Miralax 17 gm PO DAILY #1 bottle 02/05/19 119 gm Btl -] Sennosides [Senna -] 1 tab PO HS #15 tablet 02/05/19 ASSESSMENT AND PLAN: Patient is a 28yo female with PMHx of obesity and back pain ; Dr Tinoco's patient, with recent MRI revealing L5-S1 herniated disc, who presents today worsened with left lower back pain since last night 06/05. # POD #4 s/p L5/S1 laminectomies, posterior fusion, due to L5-S1 herniated disc, and cauda equina syndrome Pain control continue. Patient had pT today and is willing to go home, will discharge the patient. follow with instructions are given to the patient and also given pain meds as per . will just order her colace, miralax and senna DVT ppx heparin as per
== END 2019-02-07 18:00 | disposition home or self-care (01) | DRG 454 ==
LOC: JER 04:41 → JERBED 07:44 → J8W 18:33 → J4W 18:34 → J6S 02-04 18:06
PROVIDERS: ADMIT Internal Medicine; ATTEND Internal Medicine
PROC: 0SG3071 Fusion of Lumbosacral Joint with Autologous Tissue Substitute, Posterior Approach, Posterior Column, Open Approach (ICD-10-PCS; 2019-02-03)
PROC: 01NB0ZZ Release Lumbar Nerve, Open Approach (ICD-10-PCS; 2019-02-03)
PROC: 0SB40ZZ Excision of Lumbosacral Disc, Open Approach (ICD-10-PCS; 2019-02-03)
PROC: 0JR707Z Replacement of Back Subcutaneous Tissue and Fascia with Autologous Tissue Substitute, Open Approach (ICD-10-PCS; 2019-02-03)
PROC: B01BZZZ Fluoroscopy of Spinal Cord (ICD-10-PCS; 2019-02-03)
PROC: 0SG30AJ Fusion of Lumbosacral Joint with Interbody Fusion Device, Posterior Approach, Anterior Column, Open Approach (ICD-10-PCS; principal; 2019-02-03 12:00)
DX: M51.27 Other intervertebral disc displacement, lumbosacral region (principal); G83.4 Cauda equina syndrome; E66.9 Obesity, unspecified; Z68.34 Body mass index [BMI] 34.0-34.9, adult; R33.8 Other retention of urine
CPT/HCPCS: 36415; 72131-TC; 76000-TC-FY; 80048; 80053; 81003; 83735; 84100; 84703; 85025; 85027; 85610; 85730; 86850; 86900; 86901; 88304-TC; 93005; 93010; 94010; 94760; 97116-GP; 97161-GP; 99282-25; J0131; J1644; J7030

== ENCOUNTER 2023-02-19 21:12 | Emergency (ER) | payer SELFPAY ==
[2023-02-19 21:28] VITALS: RESP 18; BMI 34.3
[2023-02-19] MEDS ORDERED: DEXAMETHASONE SOD PHOSPHATE 10 MG/1 ML VIAL IVPUSH ONE (22:10)
[2023-02-19] MEDS ORDERED: ACETAMINOPHEN 1000 MG/100 ML BAG IVPB ONE (22:10)
[2023-02-19] MEDS ORDERED: SODIUM CHLORIDE 0.9% 1000 ML INFUS.BAG IV ONE (22:12)
[2023-02-19] MEDS ORDERED: ACETAMINOPHEN INJECTION 100 ML IVPB ONE (22:23)
[2023-02-19] MEDS ORDERED: DEXAMETHASONE SOD PHOSPHATE 10 MG/1 ML VIAL ONE (22:23)
[2023-02-19 22:44] LABS: BASO % 0.4 % (0-2.0); EOS % 0.6 % (0-4.5); HEMATOCRIT 36.4 % (32.4-45.2); HEMOGLOBIN 12.2 GM/dL (10.7-15.3); LYMPH % 15.3 % (8-40); MCH 27.9 pg (25.7-33.7); MCHC 33.6 g/dl (32.0-36.0); MONO % 7.1 % (3.8-10.2); NEUT % 76.6 % (42.8-82.8); PLATELET COUNT 273 10^3/uL (134-434); RBC 4.39 M/mm3 (3.60-5.2); WHITE BLOOD COUNT 7.8 K/mm3 (4.0-10.0)
[2023-02-19 23:05] LABS: ALBUMIN 3.6 g/dl (3.4-5.0); CALCIUM 8.5 mg/dL (8.5-10.1)
[2023-02-19 23:08] LABS: CREATININE 0.6 mg/dL (0.55-1.3)
[2023-02-19 23:10] LABS: BILIRUBIN,TOTAL 0.4 mg/dL (0.2-1); TOT PROT 7.9 g/dl (6.4-8.2)
[2023-02-19 23:41] LABS: EPI CELLS >36 /uL (0-25.1); HYALINE CASTS 2 /uL (0-3.1); URINE APPEARANCE CLOUDY; URINE BACTERIA 7 /uL (0-1359); URINE BILIRUBIN NEGATIVE (NEGATIVE); URINE COLOR YELLOW; URINE GLUCOSE (UA) NEGATIVE (NEGATIVE); URINE KETONE 3+ (NEGATIVE); URINE LEUK ESTERASE TRACE (NEGATIVE); URINE NITRITE NEGATIVE (NEGATIVE); URINE PROTEIN 1+ (NEGATIVE); URINE RBC 105 /uL (0-23.9); URINE UROBILINOGEN 0.2 mg/dL (0.2-1.0); URINE WBC 86 /uL (0-25.8)
[2023-02-19 23:42] LABS: HCG,QUALITATIVE URINE Negative
[2023-02-20] MEDS ORDERED: KETOROLAC TROMETHAMINE 15 MG/ML VIAL IVPUSH ONE (00:33)
[2023-02-20] MEDS ORDERED: KETOROLAC TROMETHAMINE 15 MG/ML VIAL ONE (00:36)
[2023-02-20 00:44] VITALS: BP 129/77; PULSE 101; TEMP 99.1
== END 2023-02-20 00:58 | disposition home or self-care (01) ==
LOC: JER 21:12
PROC: 3E033NZ Introduction of Analgesics, Hypnotics, Sedatives into Peripheral Vein, Percutaneous Approach (ICD-10-PCS; principal; 2023-02-19)
PROC: 3E033GC Introduction of Other Therapeutic Substance into Peripheral Vein, Percutaneous Approach (ICD-10-PCS; 2023-02-19)
PROC: 3E033GC Introduction of Other Therapeutic Substance into Peripheral Vein, Percutaneous Approach (ICD-10-PCS; 2023-02-20)
DX: R50.9 Fever, unspecified (principal); M79.10 Myalgia, unspecified site; R07.0 Pain in throat; J02.0 Streptococcal pharyngitis; N39.0 Urinary tract infection, site not specified
CPT/HCPCS: 36415; 80053; 81003; 84703; 85025; 87086; 99284-25; J1100